=== PATIENT | male | born 1950 | race Caucasian/White ===

== ENCOUNTER 2016-10-17 20:02 | Inpatient (IN) | payer MEDICARE, MEDICAID ==
[~2016-10-17] VITALS: Ht 167.6 cm; Wt 66.7 kg
[~2016-10-17 20:02] MED LIST: ACET-784 PO; LOPE2 PO; METR250T PO; MULT-29 PO; PANT40TA PO; ZOLP5 PO
[2016-10-17 20:28] LABS: BASOPHILS % (AUTO) 0.9 % (0.0-2.0); EOSINOPHILS % (AUTO) 0.1 % (1.0-6.0); HEMATOCRIT 50.6 % (41-53); HEMOGLOBIN 16.8 g/dL (13.5-17.5); LYMPHOCYTES % (AUTO) 13.3 % (22.0-44.0); MEAN CORPUSCULAR HEMOGLOBIN 33.4 pg (26.0-34.0); MEAN CORPUSCULAR HGB CONC 33.1 G/dL (31.0-37.0); MEAN CORPUSCULAR VOLUME 101 fL (80-100); MONOCYTES # (AUTO) 0.4 K/uL (0.1-1.0); MONOCYTES % (AUTO) 5.1 % (2.0-9.0); NEUTROPHILS # (AUTO) 6.3 K/uL (1.8-7.7); NEUTROPHILS % (AUTO) 80.6 % (40.0-70.0); PLATELET COUNT (AUTO) 183 K/uL (150-450); RED BLOOD CELL COUNT(AUTO) 5.02 MIL/uL (4.50-5.90); RED CELL DISTRIBUTION WIDTH 15.3 % (11.5-14.5); WHITE BLOOD COUNT (AUTO) 7.8 K/uL (4.5-11.0)
[2016-10-17] MEDS ORDERED: POVIDONE-IODINE 10% 15 ML SOLUTION UD ONE (20:29)
[2016-10-17 20:41] LABS: ANION GAP 19 mmol/L (8-16); CALCIUM, TOTAL 8.1 mg/dL (8.8-10.5); CARBON DIOXIDE 22 mmol/L (22-29); CHLORIDE 98 mmol/L (98-107); CREATININE 0.81 mg/dL (0.60-1.30); GLOMERULAR FILTR. RATE CALC > 60 mL/min (>60); POTASSIUM 3.7 mmol/L (3.5-5.1); SODIUM SERUM 139 mmol/L (136-145); UREA NITROGEN, BLOOD 10 mg/dL (7-18)
[2016-10-17 20:44] LABS: RBC MORPHOLOGY COMMENT ABNORMAL RBC MORPH
[2016-10-17] MEDS ORDERED: LORazepam 2 MG TABLET PO ONE (20:45)
[2016-10-17 20:47] LABS: ALANINE AMINOTRANSFERASE 48 U/L (12-78); ALBUMIN 3.6 g/dL (3.4-5.0); ASPARTATE AMINOTRANSFERASE 68 U/L (15-37); BILIRUBIN,TOTAL 1.6 mg/dL (0.1-1.0); TOTAL PROTEIN, SERUM 7.3 g/dL (6.4-8.2)
[2016-10-17] MEDS ORDERED: HALOPERIDOL 5 MG TABLET PO PRN (22:30)
[2016-10-17] MEDS ORDERED: LORazepam 2 MG TABLET PO PRN (22:30)
[2016-10-17 23:00] VITALS: BP 130/70
[2016-10-18] VITALS (9 sets, daily range): BP systolic 100–151; BP diastolic 57–88
[2016-10-18] MEDS ORDERED: ChlordiazePOXIDE HCL 25 MG CAPSULE PO PRN (10:00)
[2016-10-18] MEDS: MIRTAZAPINE 15 MG TABLET PO SCH (20:10)
[2016-10-18] MEDS ORDERED: ACETAMINOPHEN 325 MG TABLET PO PRN (21:15)
[2016-10-18] MEDS ORDERED: IBUPROFEN 400 MG TABLET PO PRN (21:15)
[2016-10-19 02:03] VITALS: BP 110/60
[2016-10-19 06:22] VITALS: BP 116/80
[2016-10-19] MEDS ORDERED: ChlordiazePOXIDE HCL 25 MG CAPSULE PO PRN (07:00)
[2016-10-19 07:17] LABS: HEMOGLOBIN A1C 5.1 % (4.5-6.2)
[2016-10-19 07:29] LABS: CHOL/HDL RATIO 1.3 (4.2-7.3)
[2016-10-19 08:30] VITALS: BP 124/75
[2016-10-19] MEDS: ChlordiazePOXIDE HCL 25 MG CAPSULE PO SCH ×4 (09:36→20:27)
[2016-10-19] MEDS: PANTOPRAZOLE SODIUM 40 MG DR TABLET PO SCH ×2 (09:36→16:02)
[2016-10-19] MEDS: ASPIRIN 81 MG CHEWABLE TABLET PO SCH (09:37)
[2016-10-19 10:00] VITALS: BP 136/77
[2016-10-19 16:48] VITALS: BP 117/76
[2016-10-19 20:26] VITALS: BP 95/57
[2016-10-19] MEDS: MIRTAZAPINE 15 MG TABLET PO SCH (20:27)
[2016-10-20 02:30] VITALS: BP 131/91
[2016-10-20 08:00] VITALS: BP 127/70
[2016-10-20] MEDS: ChlordiazePOXIDE HCL 25 MG CAPSULE PO SCH ×4 (08:41→20:53)
[2016-10-20] MEDS: ASPIRIN 81 MG CHEWABLE TABLET PO SCH (08:41)
[2016-10-20] MEDS: PANTOPRAZOLE SODIUM 40 MG DR TABLET PO SCH ×2 (08:41→17:20)
[2016-10-20 18:07] VITALS: BP 110/66
[2016-10-20] MEDS: MIRTAZAPINE 15 MG TABLET PO SCH (20:52)
[2016-10-21 06:20] VITALS: BP 122/58
[2016-10-21] MEDS ORDERED: ChlordiazePOXIDE HCL 10 MG CAPSULE PO PRN (07:00)
[2016-10-21 08:15] VITALS: BP 107/65
[2016-10-21] MEDS: PANTOPRAZOLE SODIUM 40 MG DR TABLET PO SCH ×2 (08:37→16:17)
[2016-10-21] MEDS: ASPIRIN 81 MG CHEWABLE TABLET PO SCH (08:38)
[2016-10-21] MEDS: ChlordiazePOXIDE HCL 10 MG CAPSULE PO SCH ×4 (08:38→20:46)
[2016-10-21 16:30] VITALS: BP 108/67
[2016-10-21] MEDS: MIRTAZAPINE 15 MG TABLET PO SCH (20:45)
[2016-10-22] MEDS: CEPHALEXIN MONOHYDRATE 500 MG CAPSULE PO SCH ×4 (00:28→17:06)
[2016-10-22 01:27] VITALS: BP 122/75
[2016-10-22] MEDS ORDERED: ChlordiazePOXIDE HCL 10 MG CAPSULE PO PRN (07:00)
[2016-10-22 08:00] VITALS: BP 99/60
[2016-10-22] MEDS: PANTOPRAZOLE SODIUM 40 MG DR TABLET PO SCH ×2 (08:17→17:06)
[2016-10-22] MEDS: ASPIRIN 81 MG CHEWABLE TABLET PO SCH (08:17)
[2016-10-22] MEDS: SULFAMETHOX/TRIMETH DS 800-160 MG/TABLET PO SCH ×2 (08:17→17:06)
[2016-10-22] MEDS: CHLORHEXIDINE GLUCONATE 4% 118 ML TOPICAL LIQUID TP SCH (17:05)
[2016-10-22] MEDS: MUPIROCIN CALCIUM 2% 15 GM CREAM TP SCH (17:05)
[2016-10-22 19:33] VITALS: BP 101/57
[2016-10-22] MEDS: MIRTAZAPINE 15 MG TABLET PO SCH (21:23)
[2016-10-23] MEDS: CEPHALEXIN MONOHYDRATE 500 MG CAPSULE PO SCH ×4 (01:12→17:35)
[2016-10-23 03:14] VITALS: BP 108/61
[2016-10-23 08:18] VITALS: BP 111/63
[2016-10-23] MEDS: ASPIRIN 81 MG CHEWABLE TABLET PO SCH (08:52)
[2016-10-23] MEDS: SULFAMETHOX/TRIMETH DS 800-160 MG/TABLET PO SCH ×2 (08:52→17:35)
[2016-10-23] MEDS: PANTOPRAZOLE SODIUM 40 MG DR TABLET PO SCH ×2 (08:52→17:35)
[2016-10-23] MEDS: CHLORHEXIDINE GLUCONATE 4% 118 ML TOPICAL LIQUID TP SCH (08:54)
[2016-10-23] MEDS: MUPIROCIN CALCIUM 2% 15 GM CREAM TP SCH (08:54)
[2016-10-23 18:43] VITALS: BP 109/60
[2016-10-23] MEDS: MIRTAZAPINE 15 MG TABLET PO SCH (21:00)
[2016-10-24] MEDS: CEPHALEXIN MONOHYDRATE 500 MG CAPSULE PO SCH ×4 (00:59→17:01)
[2016-10-24 06:19] VITALS: BP 124/79
[2016-10-24 08:17] VITALS: BP 122/74
[2016-10-24] MEDS: PANTOPRAZOLE SODIUM 40 MG DR TABLET PO SCH ×2 (08:50→16:42)
[2016-10-24] MEDS: ASPIRIN 81 MG CHEWABLE TABLET PO SCH (08:50)
[2016-10-24] MEDS: CHLORHEXIDINE GLUCONATE 4% 118 ML TOPICAL LIQUID TP SCH (08:50)
[2016-10-24] MEDS: SULFAMETHOX/TRIMETH DS 800-160 MG/TABLET PO SCH ×2 (08:51→16:42)
[2016-10-24] MEDS: MUPIROCIN CALCIUM 2% 15 GM CREAM TP SCH (08:51)
[2016-10-24] MEDS: MIRTAZAPINE 15 MG TABLET PO SCH (20:24)
[2016-10-24 21:57] VITALS: BP 110/59
[2016-10-25] MEDS: CEPHALEXIN MONOHYDRATE 500 MG CAPSULE PO SCH ×4 (00:23→17:05)
[2016-10-25 08:21] VITALS: BP 103/65
[2016-10-25] MEDS: ASPIRIN 81 MG CHEWABLE TABLET PO SCH (08:48)
[2016-10-25] MEDS: SULFAMETHOX/TRIMETH DS 800-160 MG/TABLET PO SCH ×2 (08:48→16:37)
[2016-10-25] MEDS: PANTOPRAZOLE SODIUM 40 MG DR TABLET PO SCH ×2 (08:48→16:36)
[2016-10-25] MEDS: MUPIROCIN CALCIUM 2% 15 GM CREAM TP SCH (08:49)
[2016-10-25] MEDS: CHLORHEXIDINE GLUCONATE 4% 118 ML TOPICAL LIQUID TP SCH (08:49)
[2016-10-25 16:34] VITALS: BP 100/54
[2016-10-25] MEDS: MIRTAZAPINE 15 MG TABLET PO SCH (20:48)
[2016-10-26] MEDS: CEPHALEXIN MONOHYDRATE 500 MG CAPSULE PO SCH ×4 (00:29→16:32)
[2016-10-26 00:43] VITALS: BP 131/98
[2016-10-26 08:05] VITALS: BP 100/57
[2016-10-26] MEDS: PANTOPRAZOLE SODIUM 40 MG DR TABLET PO SCH ×2 (08:08→16:31)
[2016-10-26] MEDS: ASPIRIN 81 MG CHEWABLE TABLET PO SCH (08:08)
[2016-10-26] MEDS: MUPIROCIN CALCIUM 2% 15 GM CREAM TP SCH (08:09)
[2016-10-26] MEDS: SULFAMETHOX/TRIMETH DS 800-160 MG/TABLET PO SCH ×2 (08:09→16:31)
[2016-10-26] MEDS: CHLORHEXIDINE GLUCONATE 4% 118 ML TOPICAL LIQUID TP SCH (08:09)
[2016-10-26 16:12] VITALS: BP 106/69
[2016-10-26] MEDS: MIRTAZAPINE 15 MG TABLET PO SCH (21:19)
[2016-10-26 21:40] LABS: ADD UA MICROSCOPIC NO; APPEARANCE,URINE CLOUDY (CLEAR); GLUCOSE, URINE (UA) NEGATIVE (NEGATIVE); KETONES,URINE NEGATIVE (NEGATIVE); LEUKOCYTE ESTERASE ,URINE NEGATIVE (NEGATIVE); OCCULT BLOOD,URINE NEGATIVE (NEGATIVE); PH,URINE 5.5 (5.0-8.0); PROTEIN,URINE NEGATIVE (NEGATIVE)
[2016-10-27] MEDS: CEPHALEXIN MONOHYDRATE 500 MG CAPSULE PO SCH ×4 (00:29→19:09)
[2016-10-27 01:00] VITALS: BP 118/68
[2016-10-27 08:00] VITALS: BP 122/69
[2016-10-27] MEDS: PANTOPRAZOLE SODIUM 40 MG DR TABLET PO SCH ×2 (09:10→17:30)
[2016-10-27] MEDS: CHLORHEXIDINE GLUCONATE 4% 118 ML TOPICAL LIQUID TP SCH (09:11)
[2016-10-27] MEDS: ASPIRIN 81 MG CHEWABLE TABLET PO SCH (09:11)
[2016-10-27] MEDS: SULFAMETHOX/TRIMETH DS 800-160 MG/TABLET PO SCH ×2 (09:11→17:30)
[2016-10-27] MEDS: MUPIROCIN CALCIUM 2% 15 GM CREAM TP SCH (09:12)
[2016-10-27] MEDS ORDERED: MIRT15 PO (10:05)
[2016-10-27] MEDS ORDERED: ASPI81 PO (10:08)
[2016-10-27] MEDS ORDERED: CEPH500 PO (10:12)
[2016-10-27] MEDS ORDERED: MUPI15CR TP (10:15)
[2016-10-27] MEDS ORDERED: CHLO240L TP (10:15)
[2016-10-27] MEDS ORDERED: SULF1TAB42 PO (10:16)
[2016-10-27 17:20] VITALS: BP 98/56
[2016-10-27] MEDS: MIRTAZAPINE 15 MG TABLET PO SCH (20:36)
[2016-10-28] MEDS: CEPHALEXIN MONOHYDRATE 500 MG CAPSULE PO SCH ×5 (00:06→23:18)
[2016-10-28] MEDS: PANTOPRAZOLE SODIUM 40 MG DR TABLET PO SCH ×2 (08:03→16:43)
[2016-10-28] MEDS: SULFAMETHOX/TRIMETH DS 800-160 MG/TABLET PO SCH ×2 (08:03→16:43)
[2016-10-28] MEDS: ASPIRIN 81 MG CHEWABLE TABLET PO SCH (08:03)
[2016-10-28 08:20] VITALS: BP 105/63
[2016-10-28] MEDS: MUPIROCIN CALCIUM 2% 15 GM CREAM TP SCH (09:37)
[2016-10-28] MEDS: CHLORHEXIDINE GLUCONATE 4% 118 ML TOPICAL LIQUID TP SCH (09:37)
[2016-10-28 16:46] VITALS: BP 107/59
[2016-10-28] MEDS: MIRTAZAPINE 15 MG TABLET PO SCH (20:32)
[2016-10-29] MEDS: CEPHALEXIN MONOHYDRATE 500 MG CAPSULE PO SCH ×3 (06:26→19:34)
[2016-10-29] MEDS: SULFAMETHOX/TRIMETH DS 800-160 MG/TABLET PO SCH ×2 (08:13→16:23)
[2016-10-29] MEDS: PANTOPRAZOLE SODIUM 40 MG DR TABLET PO SCH ×2 (08:13→16:23)
[2016-10-29] MEDS: ASPIRIN 81 MG CHEWABLE TABLET PO SCH (08:13)
[2016-10-29 08:35] VITALS: BP 114/67
[2016-10-29] MEDS: CHLORHEXIDINE GLUCONATE 4% 118 ML TOPICAL LIQUID TP SCH (09:33)
[2016-10-29] MEDS: MUPIROCIN CALCIUM 2% 15 GM CREAM TP SCH (09:33)
[2016-10-29 16:30] VITALS: BP 122/78
[2016-10-29] MEDS: MIRTAZAPINE 15 MG TABLET PO SCH (20:47)
[2016-10-30] MEDS: CEPHALEXIN MONOHYDRATE 500 MG CAPSULE PO SCH ×4 (00:45→18:19)
[2016-10-30] MEDS: ASPIRIN 81 MG CHEWABLE TABLET PO SCH (08:26)
[2016-10-30] MEDS: SULFAMETHOX/TRIMETH DS 800-160 MG/TABLET PO SCH ×2 (08:26→16:06)
[2016-10-30] MEDS: PANTOPRAZOLE SODIUM 40 MG DR TABLET PO SCH ×2 (08:26→16:06)
[2016-10-30 08:59] VITALS: BP 110/63
[2016-10-30] MEDS: CHLORHEXIDINE GLUCONATE 4% 118 ML TOPICAL LIQUID TP SCH (09:02)
[2016-10-30] MEDS: MUPIROCIN CALCIUM 2% 15 GM CREAM TP SCH (09:02)
[2016-10-30 16:34] VITALS: BP 109/78
[2016-10-30] MEDS: MIRTAZAPINE 15 MG TABLET PO SCH (20:08)
[2016-10-30] MEDS: ZOLPIDEM TARTRATE 10 MG TABLET PO PRN (22:18)
[2016-10-31 01:00] VITALS: BP 107/69
[2016-10-31] MEDS: CEPHALEXIN MONOHYDRATE 500 MG CAPSULE PO SCH ×4 (01:01→17:37)
[2016-10-31 06:46] LABS: BASOPHILS % (AUTO) 1.4 % (0.0-2.0); EOSINOPHILS % (AUTO) 2.9 % (1.0-6.0); HEMATOCRIT 42.7 % (41-53); HEMOGLOBIN 13.7 g/dL (13.5-17.5); LYMPHOCYTES # (AUTO) 1.5 K/uL (1.0-4.8); MEAN CORPUSCULAR HEMOGLOBIN 32.6 pg (26.0-34.0); MEAN CORPUSCULAR HGB CONC 32.2 G/dL (31.0-37.0); MEAN CORPUSCULAR VOLUME 101 fL (80-100); MONOCYTES % (AUTO) 12.3 % (2.0-9.0); NEUTROPHILS # (AUTO) 5.1 K/uL (1.8-7.7); NEUTROPHILS % (AUTO) 64.4 % (40.0-70.0); PLATELET COUNT (AUTO) 392 K/uL (150-450); RED BLOOD CELL COUNT(AUTO) 4.21 MIL/uL (4.50-5.90); RED CELL DISTRIBUTION WIDTH 14.6 % (11.5-14.5); WHITE BLOOD COUNT (AUTO) 7.9 K/uL (4.5-11.0)
[2016-10-31 07:09] LABS: ALANINE AMINOTRANSFERASE 56 U/L (12-78); ALBUMIN 3.5 g/dL (3.4-5.0); ANION GAP 10 mmol/L (8-16); ASPARTATE AMINOTRANSFERASE 26 U/L (15-37); BILIRUBIN,TOTAL 0.2 mg/dL (0.1-1.0); CALCIUM, TOTAL 8.8 mg/dL (8.8-10.5); CARBON DIOXIDE 24 mmol/L (22-29); CHLORIDE 103 mmol/L (98-107); CREATININE 0.93 mg/dL (0.60-1.30); GLOMERULAR FILTR. RATE CALC > 60 mL/min (>60); POTASSIUM 5.5 mmol/L (3.5-5.1); SODIUM SERUM 137 mmol/L (136-145); TOTAL PROTEIN, SERUM 6.9 g/dL (6.4-8.2); UREA NITROGEN, BLOOD 23 mg/dL (7-18)
[2016-10-31] MEDS: PANTOPRAZOLE SODIUM 40 MG DR TABLET PO SCH ×2 (09:10→16:21)
[2016-10-31] MEDS: ASPIRIN 81 MG CHEWABLE TABLET PO SCH (09:10)
[2016-10-31] MEDS: SULFAMETHOX/TRIMETH DS 800-160 MG/TABLET PO SCH ×2 (09:10→16:21)
[2016-10-31] MEDS: MUPIROCIN CALCIUM 2% 15 GM CREAM TP SCH (09:11)
[2016-10-31] MEDS: CHLORHEXIDINE GLUCONATE 4% 118 ML TOPICAL LIQUID TP SCH (09:11)
[2016-10-31 09:33] VITALS: BP 116/60
[2016-10-31 10:59] LABS: RBC MORPHOLOGY COMMENT ABNORMAL RBC MORPH
[2016-10-31] MEDS ORDERED: SODIUM POLYSTYRENE SULFONATE 15 GM/60 ML SUSPENSION BOTTLE PO ONE (11:30)
[2016-10-31 16:39] VITALS: BP 106/65
[2016-10-31] MEDS: MIRTAZAPINE 15 MG TABLET PO SCH (20:32)
[2016-11-01] MEDS: ZOLPIDEM TARTRATE 10 MG TABLET PO PRN (00:33)
[2016-11-01 00:51] VITALS: BP 134/86
[2016-11-01 08:01] VITALS: BP 113/64
[2016-11-01] MEDS: ASPIRIN 81 MG CHEWABLE TABLET PO SCH (09:02)
[2016-11-01] MEDS: CHOLECALCIFEROL (VIT D3) 1,000 UNITS TABLET PO SCH (09:02)
[2016-11-01] MEDS: PANTOPRAZOLE SODIUM 40 MG DR TABLET PO SCH ×2 (09:02→16:41)
[2016-11-01] MEDS: CHLORHEXIDINE GLUCONATE 4% 118 ML TOPICAL LIQUID TP SCH (14:16)
[2016-11-01 17:35] VITALS: BP 125/83
[2016-11-01] MEDS: MIRTAZAPINE 30 MG TABLET PO SCH (20:17)
[2016-11-02 01:40] VITALS: BP 118/72
[2016-11-02 03:26] LABS: HEPATITIS Bs ANTIGEN SCREEN P Negative (Negative); HEPATITIS C AB SCREEN 0.1 s/co ratio (0.0-0.9)
[2016-11-02 07:41] LABS: ANION GAP 9 mmol/L (8-16); CALCIUM, TOTAL 9.1 mg/dL (8.8-10.5); CARBON DIOXIDE 26 mmol/L (22-29); CHLORIDE 104 mmol/L (98-107); CREATININE 0.79 mg/dL (0.60-1.30); GLOMERULAR FILTR. RATE CALC > 60 mL/min (>60); SODIUM SERUM 139 mmol/L (136-145); UREA NITROGEN, BLOOD 21 mg/dL (7-18)
[2016-11-02] MEDS: PANTOPRAZOLE SODIUM 40 MG DR TABLET PO SCH ×2 (07:50→16:49)
[2016-11-02] MEDS: CHOLECALCIFEROL (VIT D3) 1,000 UNITS TABLET PO SCH (07:50)
[2016-11-02] MEDS: ASPIRIN 81 MG CHEWABLE TABLET PO SCH (07:50)
[2016-11-02] MEDS: CHLORHEXIDINE GLUCONATE 4% 118 ML TOPICAL LIQUID TP SCH (08:26)
[2016-11-02 08:30] VITALS: BP 132/72
[2016-11-02 16:29] VITALS: BP 112/69
[2016-11-02] MEDS: MIRTAZAPINE 30 MG TABLET PO SCH (20:27)
[2016-11-02] MEDS: ZOLPIDEM TARTRATE 10 MG TABLET PO PRN (23:17)
[2016-11-03] MEDS: CHLORHEXIDINE GLUCONATE 4% 118 ML TOPICAL LIQUID TP SCH (08:17)
[2016-11-03] MEDS: PANTOPRAZOLE SODIUM 40 MG DR TABLET PO SCH ×2 (08:17→16:00)
[2016-11-03] MEDS: ASPIRIN 81 MG CHEWABLE TABLET PO SCH (08:17)
[2016-11-03] MEDS: CHOLECALCIFEROL (VIT D3) 1,000 UNITS TABLET PO SCH (08:17)
[2016-11-03 10:45] VITALS: BP 157/95
[2016-11-03 17:00] VITALS: BP 140/77
[2016-11-03] MEDS: MIRTAZAPINE 30 MG TABLET PO SCH (20:47)
[2016-11-04] MEDS: ASPIRIN 81 MG CHEWABLE TABLET PO SCH (07:56)
[2016-11-04] MEDS: PANTOPRAZOLE SODIUM 40 MG DR TABLET PO SCH (07:56)
[2016-11-04] MEDS: CHOLECALCIFEROL (VIT D3) 1,000 UNITS TABLET PO SCH (07:56)
[2016-11-04] MEDS: CHLORHEXIDINE GLUCONATE 4% 118 ML TOPICAL LIQUID TP SCH (08:00)
[2016-11-04] MEDS ORDERED: VITAD1000 PO (08:08)
[2016-11-04 10:30] VITALS: BP 115/68
== END 2016-11-04 15:10 | disposition home or self-care (01) | DRG 885 ==
LOC: EMS 20:04 → AHU 10-18 00:05 → 3EX 10-18 16:31
PROVIDERS: ADMIT Psychiatry & Neurology Child & Adolescent Psychiatry; ATTEND Psychiatry & Neurology Child & Adolescent Psychiatry
DX: F33.2 Major depressive disorder, recurrent severe without psychotic features (principal); F10.239 Alcohol dependence with withdrawal, unspecified; R45.851 Suicidal ideations; L03.211 Cellulitis of face; K21.9 Gastro-esophageal reflux disease without esophagitis; I25.10 Atherosclerotic heart disease of native coronary artery without angina pectoris; F19.10 Other psychoactive substance abuse, uncomplicated; E80.6 Other disorders of bilirubin metabolism; K74.60 Unspecified cirrhosis of liver; G62.9 Polyneuropathy, unspecified; R26.9 Unspecified abnormalities of gait and mobility; B95.7 Other staphylococcus as the cause of diseases classified elsewhere; F17.210 Nicotine dependence, cigarettes, uncomplicated; D64.9 Anemia, unspecified; E55.9 Vitamin D deficiency, unspecified; E87.5 Hyperkalemia; F41.9 Anxiety disorder, unspecified; R45.87 Impulsiveness; I11.9 Hypertensive heart disease without heart failure; I50.9 Heart failure, unspecified; Z86.14 Personal history of Methicillin resistant Staphylococcus aureus infection; Z79.899 Other long term (current) drug therapy; Z95.5 Presence of coronary angioplasty implant and graft; Z79.82 Long term (current) use of aspirin; Z99.3 Dependence on wheelchair; Z79.2 Long term (current) use of antibiotics
CPT/HCPCS: 74176; 80074; 82306; 82607; 82746; 83036; 84443; 87070; 87205; 97110; 97116; 97161; 99285; G0480

== ENCOUNTER 2017-11-22 14:23 | Emergency (ER) | payer MEDICARE, MEDICAID ==
[~2017-11-22] VITALS: Ht 172.7 cm; Wt 80.0 kg
[~2017-11-22 14:23] MED LIST changes: -ACET-784 PO; +ASPI81 PO; +CHLO240L TP; -LOPE2 PO; -METR250T PO; +MIRT15 PO; -MULT-29 PO; +VITAD1000 PO; -ZOLP5 PO
[2017-11-22] MEDS ORDERED: LORA-192 PO (16:21)
[2017-11-22] MEDS ORDERED: THIA100T13 PO (16:22)
[2017-11-22 16:36] LABS: EOSINOPHILS % (AUTO) 5.6 % (1.0-6.0); HEMATOCRIT 35.2 % (41-53); HEMOGLOBIN 11.6 g/dL (13.5-17.5); LYMPHOCYTES # (AUTO) 2.1 K/uL (1.0-4.8); LYMPHOCYTES % (AUTO) 33.6 % (22.0-44.0); MEAN CORPUSCULAR HEMOGLOBIN 27.5 pg (26.0-34.0); MEAN CORPUSCULAR VOLUME 83 fL (80-100); MONOCYTES # (AUTO) 0.5 K/uL (0.1-1.0); MONOCYTES % (AUTO) 8.5 % (2.0-9.0); NEUTROPHILS # (AUTO) 3.3 K/uL (1.8-7.7); NEUTROPHILS % (AUTO) 51.3 % (40.0-70.0); PLATELET COUNT (AUTO) 397 K/uL (150-450); RED BLOOD CELL COUNT(AUTO) 4.23 MIL/uL (4.50-5.90); RED CELL DISTRIBUTION WIDTH 16.1 % (11.5-14.5)
[2017-11-22 16:52] LABS: ANION GAP 9 mmol/L (8-16); CALCIUM, TOTAL 8.4 mg/dL (8.8-10.5); CARBON DIOXIDE 28 mmol/L (22-29); CHLORIDE 105 mmol/L (98-107); CREATININE 0.98 mg/dL (0.60-1.30); GLOMERULAR FILTR. RATE CALC > 60 mL/min (>60); GLUCOSE,RANDOM 94 mg/dL (70-110); POTASSIUM 3.9 mmol/L (3.5-5.1); SODIUM SERUM 142 mmol/L (136-145); UREA NITROGEN, BLOOD 9 mg/dL (7-18)
[2017-11-22 17:01] LABS: ALANINE AMINOTRANSFERASE 21 U/L (12-78); ALBUMIN 3.5 g/dL (3.4-5.0); ALKALINE PHOSPHATASE 64 U/L (46-116); ASPARTATE AMINOTRANSFERASE 20 U/L (15-37); BILIRUBIN,TOTAL 0.7 mg/dL (0.1-1.0); TOTAL PROTEIN, SERUM 7.6 g/dL (6.4-8.2)
[2017-11-22 19:17] LABS: AMPHET/METH SCREEN,URINE NEGATIVE (NEGATIVE); BARBITURATE SCREEN, URINE NEGATIVE (NEGATIVE); BENZODIAZEPINES SCREEN,URINE POSITIVE (NEGATIVE); CANNABINOID SCREEN,URINE POSITIVE (NEGATIVE); COCAINE SCREEN,URINE NEGATIVE (NEGATIVE); METHADONE SCREEN, URINE NEGATIVE (NEGATIVE); OPIATE SCREEN,URINE NEGATIVE (NEGATIVE); PHENCYCLIDINE SCREEN,URINE NEGATIVE (NEGATIVE)
[2017-11-22] MEDS ORDERED: ONDANSETRON HCL 4 MG TABLET PO ONE (20:00)
[2017-11-22 20:26] VITALS: BP 120/74
== END 2017-11-22 21:08 | disposition home or self-care (01) ==
LOC: EMS 14:27
DX: F32.9 Major depressive disorder, single episode, unspecified (principal); K21.9 Gastro-esophageal reflux disease without esophagitis; I10 Essential (primary) hypertension; F17.210 Nicotine dependence, cigarettes, uncomplicated; Z95.1 Presence of aortocoronary bypass graft; Z95.5 Presence of coronary angioplasty implant and graft; Z79.82 Long term (current) use of aspirin
CPT/HCPCS: 36415; 80053; 80307; 85025; 99284; G0480; Q0162

== ENCOUNTER 2021-04-13 13:14 | Emergency (ER) | payer MEDICAID, MEDICARE ==
[~2021-04-13] VITALS: Ht 170.2 cm; Wt 79.5 kg
[~2021-04-13 13:14] MED LIST changes: +ASPI-1450 PO; -ASPI81 PO; +CHOL100018 PO; +LORA-192 PO; +MIRT-89 PO; -MIRT15 PO; +THIA100T13 PO; -VITAD1000 PO
[2021-04-13 13:56] LABS: BASOPHILS % (AUTO) 0.5 % (0.0-2.0); EOSINOPHILS % (AUTO) 0.9 % (1.0-6.0); HEMATOCRIT 46.1 % (41-53); HEMOGLOBIN 14.7 g/dL (13.5-17.5); LYMPHOCYTES # (AUTO) 1.3 K/uL (1.0-4.8); MEAN CORPUSCULAR HEMOGLOBIN 25.7 pg (26.0-34.0); MEAN CORPUSCULAR HGB CONC 31.8 G/dL (31.0-37.0); MEAN CORPUSCULAR VOLUME 81 fL (80-100); MONOCYTES # (AUTO) 0.6 K/uL (0.1-1.0); MONOCYTES % (AUTO) 7.8 % (2.0-9.0); NEUTROPHILS # (AUTO) 5.9 K/uL (1.8-7.7); NEUTROPHILS % (AUTO) 74.8 % (40.0-70.0); PLATELET COUNT (AUTO) 268 K/uL (150-450); RED CELL DISTRIBUTION WIDTH 22.5 % (11.5-14.5)
[2021-04-13 14:05] LABS: ANION GAP 13 mmol/L (8-16); CALCIUM, TOTAL 8.2 mg/dL (8.8-10.5); CARBON DIOXIDE 23 mmol/L (22-29); CHLORIDE 102 mmol/L (98-107); CREATININE 0.88 mg/dL (0.60-1.30); GLOMERULAR FILTR. RATE CALC > 60 mL/min (>60); GLUCOSE,RANDOM 116 mg/dL (70-110); POTASSIUM 3.7 mmol/L (3.5-5.1); SODIUM SERUM 138 mmol/L (136-145); UREA NITROGEN, BLOOD 10 mg/dL (7-18)
[2021-04-13 14:06] LABS: COVID AG,FIA SOURCE NASOPHARYNGEAL
[2021-04-13 14:13] LABS: ALANINE AMINOTRANSFERASE 15 U/L (12-78); ALBUMIN 3.6 g/dL (3.4-5.0); ALKALINE PHOSPHATASE 91 U/L (46-116); ASPARTATE AMINOTRANSFERASE 16 U/L (15-37); TOTAL PROTEIN, SERUM 7.4 g/dL (6.4-8.2)
[2021-04-13 16:30] LABS: APPEARANCE,URINE CLEAR (CLEAR); GLUCOSE, URINE (UA) NEGATIVE (NEGATIVE); KETONES,URINE TRACE mg/dL (NEGATIVE); LEUKOCYTE ESTERASE ,URINE SMALL (NEGATIVE); NITRATE,URINE NEGATIVE (NEGATIVE); OCCULT BLOOD,URINE NEGATIVE (NEGATIVE); PROTEIN,URINE TRACE (NEGATIVE)
[2021-04-13 16:31] LABS: AMPHET/METH SCREEN,URINE NEGATIVE (NEGATIVE); BARBITURATE SCREEN, URINE NEGATIVE (NEGATIVE); BENZODIAZEPINES SCREEN,URINE NEGATIVE (NEGATIVE); CANNABINOID SCREEN,URINE POSITIVE (NEGATIVE); COCAINE SCREEN,URINE NEGATIVE (NEGATIVE); METHADONE SCREEN, URINE NEGATIVE (NEGATIVE); OPIATE SCREEN,URINE NEGATIVE (NEGATIVE)
[2021-04-13 16:33] LABS: BILIRUBIN,URINE PRELIM. POSITIVE (NEGATIVE)
[2021-04-13 16:34] LABS: PHENCYCLIDINE SCREEN,URINE NEGATIVE (NEGATIVE)
[2021-04-13 16:38] LABS: SQUAMOUS EPITHELIAL CELL,UR Few /LPF (None Seen)
[2021-04-13 16:39] LABS: BACTERIA,URINE Rare /HPF (None Seen); RBC,URINE None Seen /HPF (0-2)
[2021-04-13] MEDS ORDERED: MAG HYDROX/AL HYDROX/SIMETH ES 30 ML SUSPENSION UDCUP PO ONE (17:45)
[2021-04-13 18:30] VITALS: BP 146/89
== END 2021-04-13 20:20 | disposition home or self-care (01) ==
LOC: EMS 13:14
DX: F32.9 Major depressive disorder, single episode, unspecified (principal); I10 Essential (primary) hypertension; F17.210 Nicotine dependence, cigarettes, uncomplicated; Z20.822 Contact with and (suspected) exposure to COVID-19
CPT/HCPCS: 36415; 80053; 80307; 81001; 85025; 87086; 87426; 99284; G0480; 87077; 87186

== ENCOUNTER 2022-03-15 20:29 | Inpatient (IN) | payer MEDICARE, OTHER ==
[~2022-03-15] VITALS: Ht 167.6 cm; Wt 81.7 kg
[2022-03-15] MEDS ORDERED: ONDANSETRON HCL 4 MG/2 ML VIAL IVP ONE (22:45)
[2022-03-15] MEDS ORDERED: KETOROLAC TROMETHAMINE 30 MG/ML VIAL IVP ONE (22:45)
[2022-03-15] MEDS ORDERED: FAMOTIDINE 10 MG/ML 2 ML VIAL IVP ONE (22:45)
[2022-03-15] MEDS ORDERED: LORazepam 2 MG/ML VIAL IVP ONE (22:45)
[2022-03-15] MEDS ORDERED: SODIUM CHLORIDE 0.9% 1,000 ML IV ONE (22:45)
[2022-03-15 22:53] LABS: BASOPHILS % (AUTO) 1.3 % (0.0-2.0); EOSINOPHILS % (AUTO) 1.2 % (1.0-6.0); HEMATOCRIT 37.5 % (41-53); HEMOGLOBIN 11.7 g/dL (13.5-17.5); LYMPHOCYTES # (AUTO) 1.7 K/uL (1.0-4.8); LYMPHOCYTES % (AUTO) 15.4 % (22.0-44.0); MEAN CORPUSCULAR HEMOGLOBIN 23.1 pg (26.0-34.0); MEAN CORPUSCULAR HGB CONC 31.2 G/dL (31.0-37.0); MEAN CORPUSCULAR VOLUME 74 fL (80-100); MONOCYTES # (AUTO) 0.8 K/uL (0.1-1.0); MONOCYTES % (AUTO) 7.2 % (2.0-9.0); NEUTROPHILS # (AUTO) 8.3 K/uL (1.8-7.7); NEUTROPHILS % (AUTO) 74.9 % (40.0-70.0); PLATELET COUNT (AUTO) 252 K/uL (150-450); RED BLOOD CELL COUNT(AUTO) 5.05 MIL/uL (4.50-5.90); RED CELL DISTRIBUTION WIDTH 21.4 % (11.5-14.5)
[2022-03-15] MEDS ORDERED: SODIUM CHLORIDE 0.9% 100 ML ONE (23:06)
[2022-03-15] MEDS ORDERED: IOHEXOL 350 MG/ML 100 ML VIAL ONE (23:07)
[2022-03-15 23:16] LABS: ANION GAP 6 mmol/L (8-16); CALCIUM, TOTAL 8.8 mg/dL (8.8-10.5); CARBON DIOXIDE 26 mmol/L (22-29); CHLORIDE 101 mmol/L (98-107); CREATININE 1.05 mg/dL (0.60-1.30); GLUCOSE,RANDOM 106 mg/dL (70-110); POTASSIUM 3.9 mmol/L (3.5-5.1); SODIUM SERUM 133 mmol/L (136-145); UREA NITROGEN, BLOOD 13 mg/dL (7-18)
[2022-03-15 23:17] LABS: GLOMERULAR FILTR. RATE CALC > 60 mL/min (>60)
[2022-03-15 23:21] LABS: ALANINE AMINOTRANSFERASE 16 U/L (12-78); ALBUMIN 3.7 g/dL (3.4-5.0); ALKALINE PHOSPHATASE 91 U/L (46-116); ASPARTATE AMINOTRANSFERASE 21 U/L (15-37); BILIRUBIN,TOTAL 0.7 mg/dL (0.1-1.0); LIPASE 76 U/L (73-393); PHOSPHORUS 2.5 mg/dL (2.5-4.9); TOTAL PROTEIN, SERUM 7.6 g/dL (6.4-8.2)
[2022-03-15] MEDS ORDERED: ONDANSETRON HCL 4 MG/2 ML VIAL IVP PRN (23:45)
[2022-03-15] MEDS ORDERED: LORazepam 2 MG TABLET PO PRN (23:45)
[2022-03-15] MEDS ORDERED: ACETAMINOPHEN 325 MG TABLET PO PRN (23:45)
[2022-03-15 23:48] LABS: B-TYPE NATRIURETIC PEPTIDE 36 pg/mL (0-100)
[2022-03-16] MEDS: HEPARIN SODIUM,PORCINE 5,000 UNITS/ML VIAL SQ SCH ×4 (00:37→23:33)
[2022-03-16 05:47] LABS: APPEARANCE,URINE CLEAR (CLEAR); BILIRUBIN,URINE NEGATIVE (NEGATIVE); GLUCOSE, URINE (UA) NEGATIVE (NEGATIVE); KETONES,URINE NEGATIVE (NEGATIVE); LEUKOCYTE ESTERASE ,URINE TRACE (NEGATIVE); NITRATE,URINE NEGATIVE (NEGATIVE); OCCULT BLOOD,URINE NEGATIVE (NEGATIVE); PROTEIN,URINE TRACE mg/dL (NEGATIVE); SPECIFIC GRAVITIY, URINE 1.019 (1.003-1.030)
[2022-03-16 05:51] LABS: COVID AG,FIA SOURCE NASOPHARYNGEAL
[2022-03-16 05:57] LABS: AMPHET/METH SCREEN,URINE NEGATIVE (NEGATIVE); BARBITURATE SCREEN, URINE NEGATIVE (NEGATIVE); BENZODIAZEPINES SCREEN,URINE NEGATIVE (NEGATIVE); CANNABINOID SCREEN,URINE NEGATIVE (NEGATIVE); COCAINE SCREEN,URINE NEGATIVE (NEGATIVE); METHADONE SCREEN, URINE NEGATIVE (NEGATIVE); OPIATE SCREEN,URINE NEGATIVE (NEGATIVE)
[2022-03-16 05:59] LABS: BACTERIA,URINE Moderate /HPF (None Seen); RBC,URINE 0-2 /HPF (0-2); SQUAMOUS EPITHELIAL CELL,UR Few /LPF (None Seen)
[2022-03-16 06:02] LABS: PHENCYCLIDINE SCREEN,URINE NEGATIVE (NEGATIVE)
[2022-03-16] MEDS ORDERED: LORazepam 2 MG TABLET PO PRN (07:00)
[2022-03-16] MEDS ORDERED: MAGNESIUM OXIDE 400 MG TABLET PO PRN (08:00)
[2022-03-16] MEDS ORDERED: MAGNESIUM SULFATE 4 GM/WATER 100 ML IV PRN (08:00)
[2022-03-16] MEDS ORDERED: MAGNESIUM SULFATE 2 GM/WATER 50 ML IV PRN (08:00)
[2022-03-16 08:44] VITALS: BP 139/80
[2022-03-16] MEDS: LORazepam 2 MG TABLET PO SCH ×4 (09:38→23:33)
[2022-03-16] MEDS: MAGNESIUM SULFATE 2 GM, MVI, ADULT NO.1 WITH VIT K 10 ML, THIAMINE 100 MG, FOLIC ACID 1... IV SCH ×5 (09:38)
[2022-03-16 10:58] VITALS: BP 132/72
[2022-03-16 14:47] VITALS: BP 138/68
[2022-03-16 20:09] VITALS: BP 136/72
[2022-03-17] VITALS (7 sets, daily range): BP systolic 126–143; BP diastolic 68–85
[2022-03-17] MEDS: MAGNESIUM SULFATE 2 GM, MVI, ADULT NO.1 WITH VIT K 10 ML, THIAMINE 100 MG, FOLIC ACID 1... IV SCH ×5 (05:10)
[2022-03-17] MEDS: HEPARIN SODIUM,PORCINE 5,000 UNITS/ML VIAL SQ SCH ×3 (08:49→23:13)
[2022-03-17] MEDS: LORazepam 2 MG TABLET PO SCH ×4 (08:50→21:20)
[2022-03-18] MEDS: MAGNESIUM SULFATE 2 GM, MVI, ADULT NO.1 WITH VIT K 10 ML, THIAMINE 100 MG, FOLIC ACID 1... IV SCH ×10 (00:38→20:57)
[2022-03-18 03:08] VITALS: BP 141/79
[2022-03-18] MEDS ORDERED: LORazepam 1 MG TABLET PO PRN (07:00)
[2022-03-18 08:00] VITALS: BP 119/66
[2022-03-18] MEDS: HEPARIN SODIUM,PORCINE 5,000 UNITS/ML VIAL SQ SCH ×2 (08:57→16:00)
[2022-03-18] MEDS: LORazepam 1 MG TABLET PO SCH ×4 (08:57→21:54)
[2022-03-18 15:03] VITALS: BP 149/87
[2022-03-18 19:22] VITALS: BP 137/101
[2022-03-19] MEDS: HEPARIN SODIUM,PORCINE 5,000 UNITS/ML VIAL SQ SCH ×4 (00:51→23:41)
[2022-03-19 03:50] VITALS: BP 146/81
[2022-03-19] MEDS ORDERED: LORazepam 1 MG TABLET PO PRN (07:00)
[2022-03-19] MEDS ORDERED: METOPROLOL TARTRATE 25 MG TABLET PO ONE (11:15)
[2022-03-19 12:13] LABS: BASOPHILS % (AUTO) 0.7 % (0.0-2.0); EOSINOPHILS % (AUTO) 1.6 % (1.0-6.0); HEMATOCRIT 36.3 % (41-53); HEMOGLOBIN 11.2 g/dL (13.5-17.5); LYMPHOCYTES # (AUTO) 1.3 K/uL (1.0-4.8); LYMPHOCYTES % (AUTO) 13.1 % (22.0-44.0); MEAN CORPUSCULAR HEMOGLOBIN 23.7 pg (26.0-34.0); MEAN CORPUSCULAR HGB CONC 30.7 G/dL (31.0-37.0); MEAN CORPUSCULAR VOLUME 77 fL (80-100); MONOCYTES # (AUTO) 0.8 K/uL (0.1-1.0); NEUTROPHILS # (AUTO) 7.6 K/uL (1.8-7.7); NEUTROPHILS % (AUTO) 76.6 % (40.0-70.0); PLATELET COUNT (AUTO) 206 K/uL (150-450); RED BLOOD CELL COUNT(AUTO) 4.71 MIL/uL (4.50-5.90); RED CELL DISTRIBUTION WIDTH 22.5 % (11.5-14.5)
[2022-03-19 12:29] LABS: ANION GAP 8 mmol/L (8-16); CALCIUM, TOTAL 9.1 mg/dL (8.8-10.5); CARBON DIOXIDE 26 mmol/L (22-29); CHLORIDE 103 mmol/L (98-107); CREATININE 0.72 mg/dL (0.60-1.30); GLUCOSE,RANDOM 110 mg/dL (70-110); POTASSIUM 4.9 mmol/L (3.5-5.1); SODIUM SERUM 137 mmol/L (136-145); UREA NITROGEN, BLOOD 25 mg/dL (7-18)
[2022-03-19 12:34] LABS: GLOMERULAR FILTR. RATE CALC > 60 mL/min (>60)
[2022-03-19 12:36] LABS: ALANINE AMINOTRANSFERASE 19 U/L (12-78); ALBUMIN 3.6 g/dL (3.4-5.0); ALKALINE PHOSPHATASE 76 U/L (46-116); ASPARTATE AMINOTRANSFERASE 21 U/L (15-37); BILIRUBIN,TOTAL 0.4 mg/dL (0.1-1.0); TOTAL PROTEIN, SERUM 7.8 g/dL (6.4-8.2)
[2022-03-19 13:17] LABS: THYROID STIMULATING HORMONE 3.34 uIU/mL (0.36-3.74)
[2022-03-19] MEDS: PENICILLIN V POTASSIUM 500 MG TABLET PO SCH ×3 (13:18→21:27)
[2022-03-19] MEDS: MAGNESIUM SULFATE 2 GM, MVI, ADULT NO.1 WITH VIT K 10 ML, THIAMINE 100 MG, FOLIC ACID 1... IV SCH ×5 (17:16)
[2022-03-19 21:26] VITALS: BP 131/72
[2022-03-19] MEDS: METOPROLOL TARTRATE 25 MG TABLET PO SCH (21:28)
[2022-03-20 04:28] VITALS: BP 110/65
[2022-03-20] MEDS: PENICILLIN V POTASSIUM 500 MG TABLET PO SCH ×3 (08:06→15:27)
[2022-03-20] MEDS: METOPROLOL TARTRATE 25 MG TABLET PO SCH (08:06)
[2022-03-20] MEDS: HEPARIN SODIUM,PORCINE 5,000 UNITS/ML VIAL SQ SCH ×2 (08:06→15:27)
[2022-03-20 08:14] VITALS: BP 131/76
[2022-03-20] MEDS ORDERED: ONDANSETRON HCL 4 MG TABLET PO PRN (11:15)
[2022-03-20] MEDS: MAGNESIUM SULFATE 2 GM, MVI, ADULT NO.1 WITH VIT K 10 ML, THIAMINE 100 MG, FOLIC ACID 1... IV SCH ×5 (13:35)
[2022-03-20] MEDS ORDERED: METO25 PO (14:12)
[2022-03-20] MEDS ORDERED: ONDA-104 PO (14:12)
[2022-03-20] MEDS ORDERED: AMOX1TAB15 PO (14:12)
[2022-03-20 15:29] VITALS: BP 110/61
== END 2022-03-20 18:27 | disposition home or self-care (01) | DRG 640 ==
LOC: EMS 20:40 → 5N 03-16 07:19 → 6S 03-17 21:10 → 6N 03-18 23:19
PROVIDERS: ADMIT Internal Medicine; ATTEND Internal Medicine
DX: E87.1 Hypo-osmolality and hyponatremia (principal); G92.9 Unspecified toxic encephalopathy; N39.0 Urinary tract infection, site not specified; F10.139 Alcohol abuse with withdrawal, unspecified; I12.9 Hypertensive chronic kidney disease with stage 1 through stage 4 chronic kidney disease, or unspecified chronic kidney disease; E83.42 Hypomagnesemia; B95.2 Enterococcus as the cause of diseases classified elsewhere; D64.9 Anemia, unspecified; F41.9 Anxiety disorder, unspecified; F32.A Depression, unspecified; K21.9 Gastro-esophageal reflux disease without esophagitis; I25.10 Atherosclerotic heart disease of native coronary artery without angina pectoris; R00.0 Tachycardia, unspecified; K70.9 Alcoholic liver disease, unspecified; N18.9 Chronic kidney disease, unspecified; Z20.822 Contact with and (suspected) exposure to COVID-19; Z87.891 Personal history of nicotine dependence; Z95.1 Presence of aortocoronary bypass graft; Z95.5 Presence of coronary angioplasty implant and graft; Z79.899 Other long term (current) drug therapy; Z79.82 Long term (current) use of aspirin
CPT/HCPCS: 70450; 74177; 80053; 81001; 82040; 83690; 83735; 83880; 84100; 84443; 84484; 85025; 87086; 87186; 93005; 99291; G0480; J1644; J1885; J2060; J2405; J3411; J3475; J3490; J7030; J7050; Q0162; Q9967

== ENCOUNTER 2022-04-10 16:52 | Inpatient (IN) | payer MEDICARE, OTHER ==
[~2022-04-10] VITALS: Ht 167.6 cm; Wt 66.8 kg
[~2022-04-10 16:52] MED LIST changes: +AMOX1TAB15 PO; +METO25 PO; +ONDA-104 PO
[2022-04-10 17:43] LABS: BASOPHILS % (AUTO) 2.2 % (0.0-2.0); EOSINOPHILS % (AUTO) 1.4 % (1.0-6.0); HEMATOCRIT 39.9 % (41-53); HEMOGLOBIN 12.1 g/dL (13.5-17.5); LYMPHOCYTES # (AUTO) 1.6 K/uL (1.0-4.8); LYMPHOCYTES % (AUTO) 21.8 % (22.0-44.0); MEAN CORPUSCULAR HEMOGLOBIN 23.5 pg (26.0-34.0); MEAN CORPUSCULAR HGB CONC 30.3 G/dL (31.0-37.0); MEAN CORPUSCULAR VOLUME 78 fL (80-100); MONOCYTES # (AUTO) 0.5 K/uL (0.1-1.0); MONOCYTES % (AUTO) 6.6 % (2.0-9.0); PLATELET COUNT (AUTO) 261 K/uL (150-450); RED BLOOD CELL COUNT(AUTO) 5.14 MIL/uL (4.50-5.90); RED CELL DISTRIBUTION WIDTH 23.6 % (11.5-14.5)
[2022-04-10 17:47] LABS: ANION GAP 9 mmol/L (8-16); CALCIUM, TOTAL 8.6 mg/dL (8.8-10.5); CARBON DIOXIDE 26 mmol/L (22-29); CHLORIDE 103 mmol/L (98-107); CREATININE 1.06 mg/dL (0.60-1.30); GLUCOSE,RANDOM 86 mg/dL (70-110); SODIUM SERUM 138 mmol/L (136-145); UREA NITROGEN, BLOOD 12 mg/dL (7-18)
[2022-04-10 17:48] LABS: GLOMERULAR FILTR. RATE CALC > 60 mL/min (>60)
[2022-04-10 17:53] LABS: ALANINE AMINOTRANSFERASE 7 U/L (12-78); ALBUMIN 3.9 g/dL (3.4-5.0); ALKALINE PHOSPHATASE 90 U/L (46-116); ASPARTATE AMINOTRANSFERASE 24 U/L (15-37); BILIRUBIN,TOTAL 1.3 mg/dL (0.1-1.0); LIPASE 59 U/L (73-393); TOTAL PROTEIN, SERUM 7.7 g/dL (6.4-8.2)
[2022-04-10 18:01] LABS: B-TYPE NATRIURETIC PEPTIDE 121 pg/mL (0-100)
[2022-04-10 19:21] LABS: GLUCOSE,POINT OF CARE 96 MG/DL (70-110)
[2022-04-10 19:32] LABS: APPEARANCE,URINE CLEAR (CLEAR); BILIRUBIN,URINE NEGATIVE (NEGATIVE); GLUCOSE, URINE (UA) NEGATIVE (NEGATIVE); KETONES,URINE TRACE mg/dL (NEGATIVE); LEUKOCYTE ESTERASE ,URINE TRACE (NEGATIVE); NITRATE,URINE NEGATIVE (NEGATIVE); OCCULT BLOOD,URINE NEGATIVE (NEGATIVE); PROTEIN,URINE NEGATIVE (NEGATIVE)
[2022-04-10 19:38] LABS: BACTERIA,URINE Rare /HPF (None Seen); RBC,URINE 0-2 /HPF (0-2); SQUAMOUS EPITHELIAL CELL,UR Rare /LPF (None Seen)
[2022-04-10] MEDS ORDERED: SODIUM CHLORIDE 0.9% 500 ML IV ONE ×2 (20:15→23:15)
[2022-04-10 20:36] LABS: AMPHET/METH SCREEN,URINE NEGATIVE (NEGATIVE); BARBITURATE SCREEN, URINE NEGATIVE (NEGATIVE); BENZODIAZEPINES SCREEN,URINE NEGATIVE (NEGATIVE); CANNABINOID SCREEN,URINE NEGATIVE (NEGATIVE); COCAINE SCREEN,URINE NEGATIVE (NEGATIVE); METHADONE SCREEN, URINE NEGATIVE (NEGATIVE); OPIATE SCREEN,URINE NEGATIVE (NEGATIVE)
[2022-04-10 20:38] LABS: PHENCYCLIDINE SCREEN,URINE NEGATIVE (NEGATIVE)
[2022-04-10 20:38] LABS: PROTHROMBIN TIME 10.3 SEC (9.4-11.6)
[2022-04-10 20:41] LABS: LACTIC ACID 4.7 mmol/L (0.4-2.0)
[2022-04-10 20:55] LABS: AMMONIA < 10 umol/L (11-32); CREATINE KINASE, TOTAL ONLY 82 U/L (39-308)
[2022-04-10 21:49] LABS: COVID AG,FIA SOURCE NASAL SWAB
[2022-04-10] MEDS ORDERED: ONDANSETRON HCL 4 MG/2 ML VIAL IVP ONE (23:45)
[2022-04-10] MEDS ORDERED: DIAZEPAM 5 MG/ML 2 ML SYRINGE IVP ONE (23:45)
[2022-04-10 23:52] LABS: LIPASE 70 U/L (73-393)
[2022-04-11] MEDS ORDERED: RINGERS SOLUTION,LACTATED 1,000 ML IV SCH (01:00)
[2022-04-11] MEDS ORDERED: CefTRIAXone 1 GM/DEXTROSE 50 ML IV SCH (01:00)
[2022-04-11] MEDS ORDERED: ONDANSETRON HCL 4 MG/2 ML VIAL IVP PRN (01:00)
[2022-04-11] MEDS: ACETAMINOPHEN 325 MG TABLET PO PRN (03:34)
[2022-04-11 04:39] VITALS: BP 132/80
[2022-04-11] MEDS ORDERED: LORazepam 2 MG TABLET PO PRN (04:45)
[2022-04-11] MEDS ORDERED: 1: MAGNESIUM SULFATE 2 GM, MVI, ADULT NO.1 WITH VIT K 10 ML, THIAMINE 100 MG, FOLIC ACID IV SCH ×5 (05:00)
[2022-04-11] MEDS ORDERED: SODIUM CHLORIDE 0.9% 100 ML ONE (05:13)
[2022-04-11] MEDS ORDERED: IOHEXOL 300 MG/ML 100 ML VIAL ONE (05:14)
[2022-04-11] MEDS ORDERED: BARIUM SULFATE 0.1% SUSPENSION 450 ML BOTTLE ONE ×2 (05:14→05:15)
[2022-04-11] MEDS ORDERED: DOCUSATE SODIUM 100 MG CAPSULE PO PRN (05:15)
[2022-04-11 07:53] VITALS: BP 137/74
[2022-04-11] MEDS: HEPARIN SODIUM,PORCINE 5,000 UNITS/ML VIAL SQ SCH ×2 (08:00→16:00)
[2022-04-11] MEDS ORDERED: AMPICILLIN SODIUM/SULBACTAM NA 1.5 GM in SODIUM CHLORIDE 0.9% 50 ML IV SCH (09:00)
[2022-04-11 11:20] VITALS: BP 137/69
[2022-04-11] MEDS ORDERED: CHOL25TA4 PO (11:38)
[2022-04-11] MEDS ORDERED: THIA100T92 PO (11:38)
[2022-04-11] MEDS ORDERED: FOLI-130 PO (11:38)
[2022-04-11] MEDS ORDERED: FLUO20CA36 PO (11:38)
[2022-04-11] MEDS ORDERED: MIRT15TA98 PO (11:38)
[2022-04-11] MEDS ORDERED: CARB-49 PO (11:38)
[2022-04-11] MEDS ORDERED: MULT-1366 PO (11:38)
[2022-04-11] MEDS ORDERED: FAMO20 PO (11:38)
[2022-04-11 14:40] LABS: BASOPHILS % (AUTO) 1.2 % (0.0-2.0); EOSINOPHILS % (AUTO) 0.3 % (1.0-6.0); HEMATOCRIT 34.7 % (41-53); HEMOGLOBIN 10.4 g/dL (13.5-17.5); LYMPHOCYTES # (AUTO) 1.1 K/uL (1.0-4.8); LYMPHOCYTES % (AUTO) 12.2 % (22.0-44.0); MEAN CORPUSCULAR HEMOGLOBIN 23.2 pg (26.0-34.0); MEAN CORPUSCULAR VOLUME 77 fL (80-100); MONOCYTES # (AUTO) 0.7 K/uL (0.1-1.0); MONOCYTES % (AUTO) 7.9 % (2.0-9.0); NEUTROPHILS # (AUTO) 7.2 K/uL (1.8-7.7); NEUTROPHILS % (AUTO) 78.4 % (40.0-70.0); PLATELET COUNT (AUTO) 227 K/uL (150-450); RED BLOOD CELL COUNT(AUTO) 4.49 MIL/uL (4.50-5.90); RED CELL DISTRIBUTION WIDTH 23.5 % (11.5-14.5)
[2022-04-11 14:50] LABS: ANION GAP 6 mmol/L (8-16); CALCIUM, TOTAL 7.9 mg/dL (8.8-10.5); CARBON DIOXIDE 31 mmol/L (22-29); CHLORIDE 103 mmol/L (98-107); CREATININE 0.85 mg/dL (0.60-1.30); GLOMERULAR FILTR. RATE CALC > 60 mL/min (>60); GLUCOSE,RANDOM 100 mg/dL (70-110); POTASSIUM 4.3 mmol/L (3.5-5.1); SODIUM SERUM 140 mmol/L (136-145); UREA NITROGEN, BLOOD 8 mg/dL (7-18)
[2022-04-11 15:01] VITALS: BP 135/66
[2022-04-11 15:15] LABS: PLATELET MORPHOLOGY COMMENT LARGE PLTS PRESENT
[2022-04-11 19:40] VITALS: BP 148/83
[2022-04-11 23:38] VITALS: BP 147/83
[2022-04-12] MEDS: HEPARIN SODIUM,PORCINE 5,000 UNITS/ML VIAL SQ SCH ×3 (00:12→17:45)
[2022-04-12 03:49] VITALS: BP 147/80
[2022-04-12 04:00] VITALS: BP 147/80
[2022-04-12] MEDS ORDERED: LORazepam 2 MG TABLET PO PRN (07:00)
[2022-04-12 07:22] VITALS: BP 123/63
[2022-04-12] MEDS: MULTIVITAMINS WITH MINERALS, THERAPEUTIC TABLET PO SCH (08:36)
[2022-04-12] MEDS: ATORVASTATIN CALCIUM 20 MG TABLET PO SCH (08:37)
[2022-04-12] MEDS: PANTOPRAZOLE SODIUM 40 MG/VIAL IVP SCH (08:37)
[2022-04-12] MEDS ORDERED: LORazepam 2 MG TABLET PO SCH (09:00)
[2022-04-12] MEDS ORDERED: PERFLUTREN PROTEIN-A MICROSPHERES 0.22 MG/ML 3 ML VIAL IVP ONE (10:15)
[2022-04-12 11:14] VITALS: BP 140/66
[2022-04-12 11:25] LABS: EOSINOPHILS % (AUTO) 1.6 % (1.0-6.0); HEMATOCRIT 33.5 % (41-53); HEMOGLOBIN 10.1 g/dL (13.5-17.5); LYMPHOCYTES # (AUTO) 0.7 K/uL (1.0-4.8); MEAN CORPUSCULAR HEMOGLOBIN 23.6 pg (26.0-34.0); MEAN CORPUSCULAR HGB CONC 30.2 G/dL (31.0-37.0); MEAN CORPUSCULAR VOLUME 78 fL (80-100); MONOCYTES # (AUTO) 0.4 K/uL (0.1-1.0); NEUTROPHILS # (AUTO) 6.6 K/uL (1.8-7.7); NEUTROPHILS % (AUTO) 83.4 % (40.0-70.0); PLATELET COUNT (AUTO) 199 K/uL (150-450); RED BLOOD CELL COUNT(AUTO) 4.28 MIL/uL (4.50-5.90); RED CELL DISTRIBUTION WIDTH 23.5 % (11.5-14.5)
[2022-04-12 11:41] LABS: ANION GAP 4 mmol/L (8-16); CALCIUM, TOTAL 8.3 mg/dL (8.8-10.5); CARBON DIOXIDE 30 mmol/L (22-29); CHLORIDE 106 mmol/L (98-107); CREATININE 1.05 mg/dL (0.60-1.30); GLUCOSE,RANDOM 171 mg/dL (70-110); POTASSIUM 4.6 mmol/L (3.5-5.1); SODIUM SERUM 140 mmol/L (136-145); UREA NITROGEN, BLOOD 6 mg/dL (7-18)
[2022-04-12 11:53] LABS: GLOMERULAR FILTR. RATE CALC > 60 mL/min (>60)
[2022-04-12 16:05] VITALS: BP 150/80
[2022-04-12 20:01] VITALS: BP 143/82
[2022-04-12] MEDS: ACETAMINOPHEN 325 MG TABLET PO PRN (21:05)
[2022-04-12] MEDS: LORazepam 2 MG/ML VIAL IVP PRN (21:05)
[2022-04-13] VITALS (7 sets, daily range): BP systolic 132–154; BP diastolic 68–90
[2022-04-13] MEDS: HEPARIN SODIUM,PORCINE 5,000 UNITS/ML VIAL SQ SCH ×3 (00:55→16:00)
[2022-04-13] MEDS: ATORVASTATIN CALCIUM 20 MG TABLET PO SCH (08:36)
[2022-04-13] MEDS: MULTIVITAMINS WITH MINERALS, THERAPEUTIC TABLET PO SCH (08:36)
[2022-04-13] MEDS: ASPIRIN 81 MG DR TABLET PO SCH (08:36)
[2022-04-13] MEDS: ACETAMINOPHEN 325 MG TABLET PO PRN ×2 (08:37→13:07)
[2022-04-13] MEDS: PANTOPRAZOLE SODIUM 40 MG/VIAL IVP SCH (08:39)
[2022-04-13 09:26] LABS: BASOPHILS % (AUTO) 0.4 % (0.0-2.0); EOSINOPHILS % (AUTO) 4.8 % (1.0-6.0); HEMATOCRIT 35.3 % (41-53); HEMOGLOBIN 10.5 g/dL (13.5-17.5); LYMPHOCYTES # (AUTO) 1.1 K/uL (1.0-4.8); LYMPHOCYTES % (AUTO) 13.1 % (22.0-44.0); MEAN CORPUSCULAR HEMOGLOBIN 23.4 pg (26.0-34.0); MEAN CORPUSCULAR HGB CONC 29.9 G/dL (31.0-37.0); MEAN CORPUSCULAR VOLUME 79 fL (80-100); MONOCYTES # (AUTO) 0.5 K/uL (0.1-1.0); MONOCYTES % (AUTO) 5.6 % (2.0-9.0); NEUTROPHILS # (AUTO) 6.3 K/uL (1.8-7.7); NEUTROPHILS % (AUTO) 76.1 % (40.0-70.0); PLATELET COUNT (AUTO) 204 K/uL (150-450); RED CELL DISTRIBUTION WIDTH 23.7 % (11.5-14.5)
[2022-04-13 09:39] LABS: ANION GAP 4 mmol/L (8-16); CALCIUM, TOTAL 8.4 mg/dL (8.8-10.5); CARBON DIOXIDE 30 mmol/L (22-29); CHLORIDE 104 mmol/L (98-107); CREATININE 0.88 mg/dL (0.60-1.30); GLUCOSE,RANDOM 171 mg/dL (70-110); POTASSIUM 4.1 mmol/L (3.5-5.1); SODIUM SERUM 138 mmol/L (136-145); UREA NITROGEN, BLOOD 8 mg/dL (7-18)
[2022-04-13 09:42] LABS: GLOMERULAR FILTR. RATE CALC > 60 mL/min (>60)
[2022-04-13 09:49] LABS: LACTIC ACID 1.7 mmol/L (0.4-2.0)
[2022-04-13] MEDS: LORazepam 2 MG/ML VIAL IVP PRN ×2 (13:07→21:14)
[2022-04-13] MEDS: CIPROFLOXACIN HCL 500 MG TABLET PO SCH ×2 (14:25→20:24)
[2022-04-13 21:19] LABS: GLUCOMETER DEV NAME(LOC) 5N.1C; GLUCOSE,POINT OF CARE 115 MG/DL (70-110)
[2022-04-14 04:15] VITALS: BP 152/87
[2022-04-14] MEDS ORDERED: LORazepam 1 MG TABLET PO PRN (07:00)
[2022-04-14 07:38] VITALS: BP 150/86
[2022-04-14] MEDS: HEPARIN SODIUM,PORCINE 5,000 UNITS/ML VIAL SQ SCH ×3 (08:00→16:00)
[2022-04-14] MEDS: PANTOPRAZOLE SODIUM 40 MG/VIAL IVP SCH (09:00)
[2022-04-14] MEDS ORDERED: LORazepam 1 MG TABLET PO SCH (09:00)
[2022-04-14] MEDS: CIPROFLOXACIN HCL 500 MG TABLET PO SCH (09:20)
[2022-04-14] MEDS: MULTIVITAMINS WITH MINERALS, THERAPEUTIC TABLET PO SCH (09:20)
[2022-04-14] MEDS: ASPIRIN 81 MG DR TABLET PO SCH (09:21)
[2022-04-14] MEDS: ATORVASTATIN CALCIUM 20 MG TABLET PO SCH (09:21)
[2022-04-14] MEDS: LORazepam 2 MG/ML VIAL IVP PRN (11:22)
[2022-04-14] MEDS: ACETAMINOPHEN 325 MG TABLET PO PRN (11:28)
[2022-04-14 11:41] VITALS: BP 120/63
[2022-04-14 15:55] VITALS: BP 143/80
[2022-04-15] MEDS ORDERED: LORazepam 1 MG TABLET PO PRN (07:00)
== END 2022-04-14 18:00 | disposition home or self-care (01) | DRG 92 ==
LOC: EMS 17:06 → 5S 04-11 03:51
PROVIDERS: ADMIT Internal Medicine; ATTEND Internal Medicine
DX: G92.8 Other toxic encephalopathy (principal); E87.20 Acidosis, unspecified; N39.0 Urinary tract infection, site not specified; F10.231 Alcohol dependence with withdrawal delirium; R10.9 Unspecified abdominal pain; F10.229 Alcohol dependence with intoxication, unspecified; I25.10 Atherosclerotic heart disease of native coronary artery without angina pectoris; I10 Essential (primary) hypertension; G31.2 Degeneration of nervous system due to alcohol; K70.9 Alcoholic liver disease, unspecified; Z20.822 Contact with and (suspected) exposure to COVID-19; K21.9 Gastro-esophageal reflux disease without esophagitis; K74.60 Unspecified cirrhosis of liver; F32.A Depression, unspecified; G62.9 Polyneuropathy, unspecified; R55 Syncope and collapse; K59.00 Constipation, unspecified; Z86.73 Personal history of transient ischemic attack (TIA), and cerebral infarction without residual deficits; Z95.1 Presence of aortocoronary bypass graft; Z87.891 Personal history of nicotine dependence; Z95.5 Presence of coronary angioplasty implant and graft; Z90.49 Acquired absence of other specified parts of digestive tract; T50.905A Adverse effect of unspecified drugs, medicaments and biological substances, initial encounter
CPT/HCPCS: 51702; 70450; 71045; 74176; 74177; 80048; 80053; 81001; 82140; 82550; 82962; 83605; 83690; 83735; 83880; 84484; 85025; 85379; 85610; 85730; 87040; 87086; 87186; 93005; 93306; 93970; 97162; 97530; 99285; C8924; C9113; G0480; J0295; J0696; J1644; J2060; J2405; J3411; J3475; J3490; J7030; J7040; J7050; J7120; Q9967; 36415-L1; 36415-TC

== ENCOUNTER 2022-05-17 06:08 | Emergency (ER) | payer MEDICARE, OTHER ==
[~2022-05-17] VITALS: Ht 167.6 cm; Wt 66.8 kg
[~2022-05-17 06:08] MED LIST changes: -AMOX1TAB15 PO; +CARB-49 PO; -CHLO240L TP; -CHOL100018 PO; +CHOL25TA4 PO; +FAMO20 PO; +FOLI-130 PO; -LORA-192 PO; -METO25 PO; -MIRT-89 PO; +MULT-1366 PO; -ONDA-104 PO; -PANT40TA PO; -THIA100T13 PO; +THIA100T92 PO
[2022-05-17 08:02] LABS: BASOPHILS % (AUTO) 0.4 % (0.0-2.0); EOSINOPHILS % (AUTO) 1.9 % (1.0-6.0); HEMATOCRIT 35.9 % (41-53); LYMPHOCYTES # (AUTO) 1.2 K/uL (1.0-4.8); LYMPHOCYTES % (AUTO) 14.9 % (22.0-44.0); MEAN CORPUSCULAR HEMOGLOBIN 23.6 pg (26.0-34.0); MEAN CORPUSCULAR HGB CONC 30.5 G/dL (31.0-37.0); MEAN CORPUSCULAR VOLUME 77 fL (80-100); MONOCYTES # (AUTO) 0.7 K/uL (0.1-1.0); MONOCYTES % (AUTO) 8.8 % (2.0-9.0); NEUTROPHILS # (AUTO) 5.9 K/uL (1.8-7.7); PLATELET COUNT (AUTO) 260 K/uL (150-450); RED BLOOD CELL COUNT(AUTO) 4.66 MIL/uL (4.50-5.90); RED CELL DISTRIBUTION WIDTH 24.7 % (11.5-14.5)
[2022-05-17 08:09] LABS: APPEARANCE,URINE CLEAR (CLEAR); BILIRUBIN,URINE NEGATIVE (NEGATIVE); GLUCOSE, URINE (UA) NEGATIVE (NEGATIVE); KETONES,URINE NEGATIVE (NEGATIVE); LEUKOCYTE ESTERASE ,URINE NEGATIVE (NEGATIVE); NITRATE,URINE NEGATIVE (NEGATIVE); OCCULT BLOOD,URINE NEGATIVE (NEGATIVE); PH,URINE 6.5 (5.0-8.0); PROTEIN,URINE TRACE mg/dL (NEGATIVE); SPECIFIC GRAVITIY, URINE 1.022 (1.003-1.030)
[2022-05-17 08:15] LABS: ANION GAP 5 mmol/L (8-16); CALCIUM, TOTAL 9.2 mg/dL (8.8-10.5); CARBON DIOXIDE 31 mmol/L (22-29); CHLORIDE 102 mmol/L (98-107); CREATININE 0.77 mg/dL (0.60-1.30); GLUCOSE,RANDOM 100 mg/dL (70-110); SODIUM SERUM 138 mmol/L (136-145); UREA NITROGEN, BLOOD 10 mg/dL (7-18)
[2022-05-17 08:17] LABS: BACTERIA,URINE None Seen /HPF (None Seen); RBC,URINE None Seen /HPF (0-2); SQUAMOUS EPITHELIAL CELL,UR Few /LPF (None Seen); WBC,URINE None Seen /HPF (0-5)
[2022-05-17 08:21] LABS: ALANINE AMINOTRANSFERASE 16 U/L (12-78); ALBUMIN 3.6 g/dL (3.4-5.0); ALKALINE PHOSPHATASE 86 U/L (46-116); ASPARTATE AMINOTRANSFERASE 28 U/L (15-37); BILIRUBIN,TOTAL 0.6 mg/dL (0.1-1.0); LIPASE 100 U/L (73-393); TOTAL PROTEIN, SERUM 7.5 g/dL (6.4-8.2)
[2022-05-17 08:25] LABS: GLOMERULAR FILTR. RATE CALC > 60 mL/min (>60)
[2022-05-17] MEDS ORDERED: METOCLOPRAMIDE HCL 5 MG/ML 2 ML VIAL IVP ONE (09:45)
[2022-05-17] MEDS ORDERED: SODIUM CHLORIDE 0.9% 1,000 ML IV ONE (09:45)
[2022-05-17] MEDS ORDERED: FAMOTIDINE 40 MG in SODIUM CHLORIDE 0.9% 100 ML IV ONE (12:00)
[2022-05-17] MEDS ORDERED: SODIUM CHLORIDE 0.9% 100 ML ONE (12:00)
[2022-05-17] MEDS ORDERED: FAMO20 PO (13:50)
[2022-05-17] MEDS ORDERED: ChlordiazePOXIDE HCL 25 MG CAPSULE PO ONE (15:15)
[2022-05-17 15:41] LABS: COVID AG,FIA SOURCE NASOPHARYNGEAL
[2022-05-17 15:44] VITALS: BP 135/68
[2022-05-17 15:47] LABS: INFLUENZA TYPE A NEGATIVE FOR TYPE A (NEGATIVE); INFLUENZA TYPE B NEGATIVE FOR TYPE B (NEGATIVE)
== END 2022-05-17 17:15 | disposition home or self-care (01) ==
LOC: EMS 06:09
DX: R10.13 Epigastric pain (principal); R11.10 Vomiting, unspecified; F32.9 Major depressive disorder, single episode, unspecified; F10.239 Alcohol dependence with withdrawal, unspecified; Z20.822 Contact with and (suspected) exposure to COVID-19; I10 Essential (primary) hypertension; K21.9 Gastro-esophageal reflux disease without esophagitis; Z95.1 Presence of aortocoronary bypass graft; Z85.05 Personal history of malignant neoplasm of liver; Z87.19 Personal history of other diseases of the digestive system; Z90.49 Acquired absence of other specified parts of digestive tract; Z90.89 Acquired absence of other organs
CPT/HCPCS: 99285; 74176; 96365; 96361; 96375; 87426; 80053; 81001; 83690; 83880; 84484; 85025; 87804; 36415; 74022; 93005; G0480; J3490; J2765; J7030; J7050

== ENCOUNTER 2022-07-04 06:17 | Inpatient (IN) | payer MEDICARE, OTHER ==
[~2022-07-04] VITALS: Ht 167.6 cm; Wt 89.8 kg
[~2022-07-04 06:17] MED LIST changes: +LIB25 PO; +THIA100T80 PO; -THIA100T92 PO
[2022-07-04 07:17] LABS: BASOPHILS % (AUTO) 1.9 % (0.0-2.0); EOSINOPHILS % (AUTO) 0.8 % (1.0-6.0); HEMATOCRIT 27.5 % (41-53); LYMPHOCYTES % (AUTO) 11.2 % (22.0-44.0); MEAN CORPUSCULAR HEMOGLOBIN 21.2 pg (26.0-34.0); MEAN CORPUSCULAR HGB CONC 29.1 G/dL (31.0-37.0); MEAN CORPUSCULAR VOLUME 73 fL (80-100); MONOCYTES # (AUTO) 0.7 K/uL (0.1-1.0); MONOCYTES % (AUTO) 7.9 % (2.0-9.0); NEUTROPHILS # (AUTO) 7.2 K/uL (1.8-7.7); NEUTROPHILS % (AUTO) 78.2 % (40.0-70.0); PLATELET COUNT (AUTO) 329 K/uL (150-450); RED BLOOD CELL COUNT(AUTO) 3.76 MIL/uL (4.50-5.90); RED CELL DISTRIBUTION WIDTH 21.8 % (11.5-14.5)
[2022-07-04 07:21] LABS: ANION GAP 13 mmol/L (8-16); CALCIUM, TOTAL 8.4 mg/dL (8.8-10.5); CARBON DIOXIDE 25 mmol/L (22-29); CHLORIDE 104 mmol/L (98-107); CREATININE 1.14 mg/dL (0.60-1.30); GLOMERULAR FILTR. RATE CALC > 60 mL/min (>60); GLUCOSE,RANDOM 87 mg/dL (70-110); POTASSIUM 4.9 mmol/L (3.5-5.1); SODIUM SERUM 142 mmol/L (136-145); UREA NITROGEN, BLOOD 16 mg/dL (7-18)
[2022-07-04 07:27] LABS: ALANINE AMINOTRANSFERASE 11 U/L (12-78); ALBUMIN 3.7 g/dL (3.4-5.0); ALKALINE PHOSPHATASE 68 U/L (46-116); ASPARTATE AMINOTRANSFERASE 17 U/L (15-37); BILIRUBIN,TOTAL 0.8 mg/dL (0.1-1.0); TOTAL PROTEIN, SERUM 7.4 g/dL (6.4-8.2)
[2022-07-04] MEDS ORDERED: KETOROLAC TROMETHAMINE 60 MG/2 ML VIAL IM ONE (08:45)
[2022-07-04] MEDS ORDERED: LORazepam 1 MG TABLET PO ONE (08:45)
[2022-07-04] MEDS ORDERED: ONDANSETRON HCL 4 MG/2 ML VIAL IVP ONE (09:00)
[2022-07-04] MEDS ORDERED: SODIUM CHLORIDE 0.9% 500 ML IV ONE (09:00)
[2022-07-04] MEDS ORDERED: PERCT PO (12:41)
[2022-07-04] MEDS ORDERED: MAGNESIUM HYDROXIDE SUSPENSION 30 ML UDCUP PO PRN (15:00)
[2022-07-04] MEDS ORDERED: MORPHINE SULFATE 2 MG/ML SYRINGE IVP PRN (15:00)
[2022-07-04] MEDS ORDERED: LORazepam 2 MG/ML VIAL IM PRN (15:00)
[2022-07-04] MEDS ORDERED: ACETAMINOPHEN 325 MG TABLET PO PRN (15:00)
[2022-07-04] MEDS ORDERED: ZOLPIDEM TARTRATE 5 MG TABLET PO PRN (15:00)
[2022-07-04] MEDS ORDERED: BISACODYL 10 MG RECTAL RECTAL SUPPOSITORY PR PRN (15:00)
[2022-07-04] MEDS ORDERED: MAGNESIUM SULFATE 2 GM, MVI, ADULT NO.1 WITH VIT K 10 ML, THIAMINE 100 MG, FOLIC ACID 1... IV ONE ×5 (15:30)
[2022-07-04] MEDS: HEPARIN SODIUM,PORCINE 5,000 UNITS/ML VIAL SQ SCH (15:33)
[2022-07-04 15:47] LABS: COVID AG,FIA SOURCE NASAL SWAB
[2022-07-04] MEDS: HYDROCODONE/ACETAMINOPHEN 5-325 MG TABLET PO PRN (20:59)
[2022-07-04] MEDS: DOCUSATE SODIUM 100 MG CAPSULE PO SCH (20:59)
[2022-07-04 21:27] VITALS: BP 139/75
[2022-07-04] MEDS ORDERED: PNEUMOCOCCAL VACCINE POLYVALENT 0.5 ML VIAL [PPSV23] IM. ONE (23:15)
[2022-07-05] MEDS: HEPARIN SODIUM,PORCINE 5,000 UNITS/ML VIAL SQ SCH ×3 (00:10→16:01)
[2022-07-05 05:58] VITALS: BP 112/57
[2022-07-05 06:08] LABS: AMPHET/METH SCREEN,URINE NEGATIVE (NEGATIVE); BARBITURATE SCREEN, URINE NEGATIVE (NEGATIVE); BENZODIAZEPINES SCREEN,URINE POSITIVE (NEGATIVE); CANNABINOID SCREEN,URINE NEGATIVE (NEGATIVE); COCAINE SCREEN,URINE NEGATIVE (NEGATIVE); METHADONE SCREEN, URINE NEGATIVE (NEGATIVE); OPIATE SCREEN,URINE POSITIVE (NEGATIVE)
[2022-07-05 06:10] LABS: PHENCYCLIDINE SCREEN,URINE NEGATIVE (NEGATIVE)
[2022-07-05] MEDS: DOCUSATE SODIUM 100 MG CAPSULE PO SCH ×2 (08:10→19:51)
[2022-07-05] MEDS: PANTOPRAZOLE SODIUM 40 MG DR TABLET PO SCH (08:10)
[2022-07-05 08:36] VITALS: BP 122/58
[2022-07-05] MEDS: HYDROCODONE/ACETAMINOPHEN 5-325 MG TABLET PO PRN ×3 (13:11→20:49)
[2022-07-05 14:42] VITALS: BP 122/66
[2022-07-05 20:00] VITALS: BP 121/54
[2022-07-06] MEDS: HEPARIN SODIUM,PORCINE 5,000 UNITS/ML VIAL SQ SCH ×5 (00:46→23:19)
[2022-07-06] MEDS: HYDROCODONE/ACETAMINOPHEN 5-325 MG TABLET PO PRN ×3 (00:46→15:19)
[2022-07-06] MEDS: ONDANSETRON HCL 4 MG/2 ML VIAL IVP PRN ×2 (01:17→06:24)
[2022-07-06 05:43] VITALS: BP 130/70
[2022-07-06 07:18] VITALS: BP 127/61
[2022-07-06] MEDS: DOCUSATE SODIUM 100 MG CAPSULE PO SCH ×2 (09:00→21:00)
[2022-07-06] MEDS: PANTOPRAZOLE SODIUM 40 MG DR TABLET PO SCH (09:00)
[2022-07-06 15:40] VITALS: BP 133/69
[2022-07-06 21:00] VITALS: BP 115/66
[2022-07-07] MEDS: HYDROCODONE/ACETAMINOPHEN 5-325 MG TABLET PO PRN ×3 (00:23→12:17)
[2022-07-07 05:00] VITALS: BP 114/72
[2022-07-07 07:44] VITALS: BP 129/51
[2022-07-07] MEDS: HEPARIN SODIUM,PORCINE 5,000 UNITS/ML VIAL SQ SCH ×2 (08:00→16:00)
[2022-07-07] MEDS: DOCUSATE SODIUM 100 MG CAPSULE PO SCH (09:00)
[2022-07-07] MEDS: PANTOPRAZOLE SODIUM 40 MG DR TABLET PO SCH (09:00)
[2022-07-07 15:33] VITALS: BP 126/56
== END 2022-07-07 19:30 | DRG 392 ==
LOC: EMS 06:18 → 6S 19:54 → UNDOADMIN 20:53 → 6S 20:53
PROVIDERS: ADMIT Internal Medicine; ATTEND Internal Medicine
DX: K29.20 Alcoholic gastritis without bleeding (principal); F10.139 Alcohol abuse with withdrawal, unspecified; F17.200 Nicotine dependence, unspecified, uncomplicated; J44.9 Chronic obstructive pulmonary disease, unspecified; Z20.822 Contact with and (suspected) exposure to COVID-19; Z91.199 Patient's noncompliance with other medical treatment and regimen due to unspecified reason; F12.90 Cannabis use, unspecified, uncomplicated; M25.562 Pain in left knee; M25.561 Pain in right knee; G20 Parkinson's disease; I10 Essential (primary) hypertension; W06.XXXA Fall from bed, initial encounter; Y93.89 Activity, other specified; Y92.89 Other specified places as the place of occurrence of the external cause; Y99.8 Other external cause status; Z79.82 Long term (current) use of aspirin; Z95.1 Presence of aortocoronary bypass graft; Z95.5 Presence of coronary angioplasty implant and graft
CPT/HCPCS: 71045; 80053; 80307; 85025; 93005; 97110; 97162; 97530; 99285; G0378; J1644; J1885; J2405; J3411; J3475; J3490; J7030; 36415-L1; 36415-TC

== ENCOUNTER 2022-07-10 15:43 | Inpatient (IN) | payer MEDICARE, OTHER ==
[~2022-07-10] VITALS: Ht 167.6 cm; Wt 82.0 kg
[2022-07-10] VITALS (7 sets, daily range): BP systolic 131–160; BP diastolic 58–84
[2022-07-10] MEDS ORDERED: PANTOPRAZOLE SODIUM 40 MG/VIAL IVP ONE (16:15)
[2022-07-10 16:53] LABS: BASOPHILS % (AUTO) 1.5 % (0.0-2.0); LYMPHOCYTES # (AUTO) 0.8 K/uL (1.0-4.8); LYMPHOCYTES % (AUTO) 10.9 % (22.0-44.0); MEAN CORPUSCULAR HEMOGLOBIN 20.8 pg (26.0-34.0); MEAN CORPUSCULAR HGB CONC 28.4 G/dL (31.0-37.0); MEAN CORPUSCULAR VOLUME 73 fL (80-100); MONOCYTES # (AUTO) 0.7 K/uL (0.1-1.0); MONOCYTES % (AUTO) 9.8 % (2.0-9.0); NEUTROPHILS # (AUTO) 5.7 K/uL (1.8-7.7); NEUTROPHILS % (AUTO) 75.8 % (40.0-70.0); PLATELET COUNT (AUTO) 246 K/uL (150-450); RED BLOOD CELL COUNT(AUTO) 2.85 MIL/uL (4.50-5.90); RED CELL DISTRIBUTION WIDTH 22.2 % (11.5-14.5)
[2022-07-10 17:00] LABS: ANION GAP 3 mmol/L (8-16); CALCIUM, TOTAL 8.3 mg/dL (8.8-10.5); CARBON DIOXIDE 27 mmol/L (22-29); CHLORIDE 107 mmol/L (98-107); CREATININE 1.01 mg/dL (0.60-1.30); GLUCOSE,RANDOM 128 mg/dL (70-110); POTASSIUM 4.1 mmol/L (3.5-5.1); PROTHROMBIN TIME 10.4 SEC (9.4-11.6); SODIUM SERUM 137 mmol/L (136-145); UREA NITROGEN, BLOOD 16 mg/dL (7-18)
[2022-07-10 17:01] LABS: HEMATOCRIT 20.9 % (41-53); HEMOGLOBIN 5.9 g/dL (13.5-17.5)
[2022-07-10 17:02] LABS: GLOMERULAR FILTR. RATE CALC > 60 mL/min (>60)
[2022-07-10] MEDS: PANTOPRAZOLE SODIUM 80 MG in SODIUM CHLORIDE 0.9% 100 ML IV SCH (17:05)
[2022-07-10 17:06] LABS: ALANINE AMINOTRANSFERASE 10 U/L (12-78); ALBUMIN 3.1 g/dL (3.4-5.0); ALKALINE PHOSPHATASE 72 U/L (46-116); ASPARTATE AMINOTRANSFERASE 13 U/L (15-37); BILIRUBIN,TOTAL 0.4 mg/dL (0.1-1.0); LIPASE 86 U/L (73-393); TOTAL PROTEIN, SERUM 6.8 g/dL (6.4-8.2)
[2022-07-10] MEDS ORDERED: ONDANSETRON HCL 4 MG/2 ML VIAL IVP PRN ×2 (17:45→22:15)
[2022-07-10 17:47] LABS: COVID AG,FIA SOURCE NASOPHARYNGEAL
[2022-07-10] MEDS ORDERED: ACETAMINOPHEN 325 MG TABLET PO PRN (22:15)
[2022-07-10] MEDS ORDERED: MAGNESIUM HYDROXIDE SUSPENSION 30 ML UDCUP PO PRN (22:15)
[2022-07-10] MEDS ORDERED: BISACODYL 10 MG RECTAL RECTAL SUPPOSITORY PR PRN (22:15)
[2022-07-10] MEDS ORDERED: ALBUTEROL SULFATE 2.5 MG/0.5 ML NEB SOLUTION NEB PRN (22:15)
[2022-07-10] MEDS ORDERED: IPRATROPIUM BROMIDE 0.5 MG/2.5 ML NEB SOLUTION NEB PRN (22:15)
[2022-07-10] MEDS ORDERED: OXYC-38 PO (22:23)
[2022-07-10] MEDS ORDERED: PANT-31 PO (22:23)
[2022-07-10] MEDS ORDERED: ACET-784 PO (22:28)
[2022-07-10] MEDS: ZOLPIDEM TARTRATE 5 MG TABLET PO PRN (22:59)
[2022-07-10] MEDS: MORPHINE SULFATE 2 MG/ML SYRINGE IVP PRN (23:00)
[2022-07-11] VITALS (8 sets, daily range): BP systolic 127–153; BP diastolic 59–87
[2022-07-11] MEDS: PANTOPRAZOLE SODIUM 80 MG in SODIUM CHLORIDE 0.9% 100 ML IV SCH ×4 (01:20→22:29)
[2022-07-11] MEDS: MORPHINE SULFATE 2 MG/ML SYRINGE IVP PRN (04:03)
[2022-07-11 05:54] LABS: BASOPHILS % (AUTO) 0.9 % (0.0-2.0); EOSINOPHILS % (AUTO) 3.2 % (1.0-6.0); HEMATOCRIT 26.6 % (41-53); HEMOGLOBIN 8.1 g/dL (13.5-17.5); LYMPHOCYTES # (AUTO) 0.9 K/uL (1.0-4.8); LYMPHOCYTES % (AUTO) 12.9 % (22.0-44.0); MEAN CORPUSCULAR HEMOGLOBIN 23.6 pg (26.0-34.0); MEAN CORPUSCULAR HGB CONC 30.4 G/dL (31.0-37.0); MEAN CORPUSCULAR VOLUME 78 fL (80-100); MONOCYTES # (AUTO) 0.7 K/uL (0.1-1.0); MONOCYTES % (AUTO) 10.5 % (2.0-9.0); NEUTROPHILS # (AUTO) 4.8 K/uL (1.8-7.7); NEUTROPHILS % (AUTO) 72.5 % (40.0-70.0); PLATELET COUNT (AUTO) 210 K/uL (150-450); RED BLOOD CELL COUNT(AUTO) 3.41 MIL/uL (4.50-5.90); RED CELL DISTRIBUTION WIDTH 24.8 % (11.5-14.5)
[2022-07-11 06:07] LABS: ALANINE AMINOTRANSFERASE 12 U/L (12-78); ALKALINE PHOSPHATASE 56 U/L (46-116); ANION GAP 9 mmol/L (8-16); ASPARTATE AMINOTRANSFERASE 16 U/L (15-37); BILIRUBIN,TOTAL 1.2 mg/dL (0.1-1.0); CARBON DIOXIDE 25 mmol/L (22-29); CHLORIDE 109 mmol/L (98-107); CREATININE 0.89 mg/dL (0.60-1.30); GLUCOSE,RANDOM 100 mg/dL (70-110); POTASSIUM 3.9 mmol/L (3.5-5.1); SODIUM SERUM 143 mmol/L (136-145); TOTAL PROTEIN, SERUM 6.5 g/dL (6.4-8.2); UREA NITROGEN, BLOOD 10 mg/dL (7-18)
[2022-07-11 06:11] LABS: GLOMERULAR FILTR. RATE CALC > 60 mL/min (>60)
[2022-07-11] MEDS ORDERED: SODIUM CHLORIDE 0.9% 1,000 ML ONE (10:05)
[2022-07-11] MEDS: METOPROLOL TARTRATE 25 MG TABLET PO SCH ×2 (11:28→21:33)
[2022-07-11 17:36] LABS: BASOPHILS % (AUTO) 1.4 % (0.0-2.0); EOSINOPHILS % (AUTO) 2.5 % (1.0-6.0); HEMATOCRIT 27.7 % (41-53); HEMOGLOBIN 8.4 g/dL (13.5-17.5); LYMPHOCYTES % (AUTO) 14.5 % (22.0-44.0); MEAN CORPUSCULAR HEMOGLOBIN 23.6 pg (26.0-34.0); MEAN CORPUSCULAR HGB CONC 30.4 G/dL (31.0-37.0); MEAN CORPUSCULAR VOLUME 78 fL (80-100); MONOCYTES # (AUTO) 0.9 K/uL (0.1-1.0); MONOCYTES % (AUTO) 13.6 % (2.0-9.0); NEUTROPHILS # (AUTO) 4.5 K/uL (1.8-7.7); PLATELET COUNT (AUTO) 227 K/uL (150-450); RED BLOOD CELL COUNT(AUTO) 3.55 MIL/uL (4.50-5.90)
[2022-07-11] MEDS: ZOLPIDEM TARTRATE 5 MG TABLET PO PRN (21:35)
[2022-07-12 05:12] VITALS: BP 119/52
[2022-07-12 05:52] LABS: BASOPHILS % (AUTO) 1.3 % (0.0-2.0); EOSINOPHILS % (AUTO) 2.9 % (1.0-6.0); HEMATOCRIT 27.3 % (41-53); HEMOGLOBIN 8.3 g/dL (13.5-17.5); LYMPHOCYTES # (AUTO) 1.1 K/uL (1.0-4.8); LYMPHOCYTES % (AUTO) 14.1 % (22.0-44.0); MEAN CORPUSCULAR HEMOGLOBIN 23.6 pg (26.0-34.0); MEAN CORPUSCULAR HGB CONC 30.5 G/dL (31.0-37.0); MEAN CORPUSCULAR VOLUME 78 fL (80-100); MONOCYTES # (AUTO) 0.9 K/uL (0.1-1.0); NEUTROPHILS # (AUTO) 5.3 K/uL (1.8-7.7); NEUTROPHILS % (AUTO) 69.7 % (40.0-70.0); PLATELET COUNT (AUTO) 227 K/uL (150-450); RED BLOOD CELL COUNT(AUTO) 3.52 MIL/uL (4.50-5.90); RED CELL DISTRIBUTION WIDTH 24.9 % (11.5-14.5)
[2022-07-12 06:15] LABS: ALANINE AMINOTRANSFERASE 13 U/L (12-78); ALBUMIN 3.1 g/dL (3.4-5.0); ALKALINE PHOSPHATASE 57 U/L (46-116); ANION GAP 7 mmol/L (8-16); ASPARTATE AMINOTRANSFERASE 15 U/L (15-37); BILIRUBIN,TOTAL 1.3 mg/dL (0.1-1.0); CALCIUM, TOTAL 8.1 mg/dL (8.8-10.5); CARBON DIOXIDE 24 mmol/L (22-29); CHLORIDE 107 mmol/L (98-107); CREATININE 0.96 mg/dL (0.60-1.30); GLUCOSE,RANDOM 88 mg/dL (70-110); POTASSIUM 4.2 mmol/L (3.5-5.1); SODIUM SERUM 138 mmol/L (136-145); TOTAL PROTEIN, SERUM 6.8 g/dL (6.4-8.2); UREA NITROGEN, BLOOD 10 mg/dL (7-18)
[2022-07-12 06:24] LABS: GLOMERULAR FILTR. RATE CALC > 60 mL/min (>60)
[2022-07-12 07:09] VITALS: BP 130/77
[2022-07-12] MEDS: METOPROLOL TARTRATE 25 MG TABLET PO SCH ×2 (08:40→20:28)
[2022-07-12] MEDS: PANTOPRAZOLE SODIUM 80 MG in SODIUM CHLORIDE 0.9% 100 ML IV SCH (08:42)
[2022-07-12] MEDS ORDERED: SODIUM CHLORIDE 0.9% 1,000 ML IV ONE (10:45)
[2022-07-12] MEDS ORDERED: SODIUM CHLORIDE 0.9% 1,000 ML ONE (11:03)
[2022-07-12] MEDS ORDERED: PEG 3350/NA SULF,BICARB,CL/KCL 4000 ML SOLUTION PO ONE (12:30)
[2022-07-12 14:07] VITALS: BP 122/63
[2022-07-12 15:00] VITALS: BP 101/51
[2022-07-12 20:09] VITALS: BP 135/65
[2022-07-12] MEDS: MORPHINE SULFATE 2 MG/ML SYRINGE IVP PRN (20:28)
[2022-07-12] MEDS: ZOLPIDEM TARTRATE 5 MG TABLET PO PRN (22:32)
[2022-07-13] VITALS (7 sets, daily range): BP systolic 105–135; BP diastolic 59–74
[2022-07-13 06:52] LABS: ALANINE AMINOTRANSFERASE 15 U/L (12-78); ALBUMIN 3.1 g/dL (3.4-5.0); ALKALINE PHOSPHATASE 51 U/L (46-116); ANION GAP 9 mmol/L (8-16); ASPARTATE AMINOTRANSFERASE 14 U/L (15-37); CALCIUM, TOTAL 8.2 mg/dL (8.8-10.5); CARBON DIOXIDE 25 mmol/L (22-29); CHLORIDE 104 mmol/L (98-107); CREATININE 1.01 mg/dL (0.60-1.30); GLOMERULAR FILTR. RATE CALC > 60 mL/min (>60); GLUCOSE,RANDOM 95 mg/dL (70-110); POTASSIUM 4.1 mmol/L (3.5-5.1); SODIUM SERUM 138 mmol/L (136-145); TOTAL PROTEIN, SERUM 6.8 g/dL (6.4-8.2); UREA NITROGEN, BLOOD 6 mg/dL (7-18)
[2022-07-13 07:00] LABS: EOSINOPHILS % (AUTO) 3.2 % (1.0-6.0); HEMATOCRIT 27.5 % (41-53); HEMOGLOBIN 8.3 g/dL (13.5-17.5); LYMPHOCYTES % (AUTO) 12.7 % (22.0-44.0); MEAN CORPUSCULAR HEMOGLOBIN 23.3 pg (26.0-34.0); MEAN CORPUSCULAR HGB CONC 30.1 G/dL (31.0-37.0); MEAN CORPUSCULAR VOLUME 77 fL (80-100); MONOCYTES # (AUTO) 1.1 K/uL (0.1-1.0); MONOCYTES % (AUTO) 12.8 % (2.0-9.0); NEUTROPHILS # (AUTO) 5.8 K/uL (1.8-7.7); NEUTROPHILS % (AUTO) 70.3 % (40.0-70.0); PLATELET COUNT (AUTO) 244 K/uL (150-450); RED BLOOD CELL COUNT(AUTO) 3.56 MIL/uL (4.50-5.90); RED CELL DISTRIBUTION WIDTH 25.1 % (11.5-14.5)
[2022-07-13 07:37] LABS: PLATELET MORPHOLOGY COMMENT LARGE PLTS PRESENT
[2022-07-13] MEDS: METOPROLOL TARTRATE 25 MG TABLET PO SCH ×2 (08:05→20:28)
[2022-07-13] MEDS: ZOLPIDEM TARTRATE 5 MG TABLET PO PRN (20:28)
[2022-07-13] MEDS: MORPHINE SULFATE 2 MG/ML SYRINGE IVP PRN (20:28)
[2022-07-14] MEDS: MORPHINE SULFATE 2 MG/ML SYRINGE IVP PRN ×5 (00:49→21:58)
[2022-07-14 04:16] VITALS: BP 115/65
[2022-07-14 06:32] LABS: BASOPHILS % (AUTO) 1.5 % (0.0-2.0); EOSINOPHILS % (AUTO) 3.9 % (1.0-6.0); HEMATOCRIT 29.5 % (41-53); HEMOGLOBIN 8.9 g/dL (13.5-17.5); LYMPHOCYTES % (AUTO) 14.1 % (22.0-44.0); MEAN CORPUSCULAR HEMOGLOBIN 23.2 pg (26.0-34.0); MEAN CORPUSCULAR VOLUME 77 fL (80-100); MONOCYTES % (AUTO) 13.9 % (2.0-9.0); NEUTROPHILS # (AUTO) 4.8 K/uL (1.8-7.7); NEUTROPHILS % (AUTO) 66.6 % (40.0-70.0); PLATELET COUNT (AUTO) 261 K/uL (150-450); RED BLOOD CELL COUNT(AUTO) 3.83 MIL/uL (4.50-5.90); RED CELL DISTRIBUTION WIDTH 25.3 % (11.5-14.5)
[2022-07-14 07:10] VITALS: BP 123/66
[2022-07-14 07:21] LABS: ALANINE AMINOTRANSFERASE 13 U/L (12-78); ALBUMIN 3.3 g/dL (3.4-5.0); ALKALINE PHOSPHATASE 57 U/L (46-116); ANION GAP 8 mmol/L (8-16); ASPARTATE AMINOTRANSFERASE 13 U/L (15-37); BILIRUBIN,TOTAL 0.9 mg/dL (0.1-1.0); CALCIUM, TOTAL 8.5 mg/dL (8.8-10.5); CARBON DIOXIDE 25 mmol/L (22-29); CHLORIDE 102 mmol/L (98-107); CREATININE 0.99 mg/dL (0.60-1.30); GLUCOSE,RANDOM 94 mg/dL (70-110); SODIUM SERUM 135 mmol/L (136-145); TOTAL PROTEIN, SERUM 7.4 g/dL (6.4-8.2); UREA NITROGEN, BLOOD 5 mg/dL (7-18)
[2022-07-14 07:23] LABS: GLOMERULAR FILTR. RATE CALC > 60 mL/min (>60)
[2022-07-14] MEDS: METOPROLOL TARTRATE 25 MG TABLET PO SCH ×2 (08:19→20:10)
[2022-07-14 11:09] VITALS: BP 109/59
[2022-07-14 15:24] VITALS: BP 114/68
[2022-07-14 19:39] VITALS: BP 140/69
[2022-07-14] MEDS: ZOLPIDEM TARTRATE 5 MG TABLET PO PRN (20:10)
[2022-07-14 23:05] VITALS: BP 129/66
[2022-07-15] MEDS: MORPHINE SULFATE 2 MG/ML SYRINGE IVP PRN ×2 (03:22→08:59)
[2022-07-15 04:16] VITALS: BP 150/75
[2022-07-15 06:58] LABS: BASOPHILS % (AUTO) 0.9 % (0.0-2.0); EOSINOPHILS % (AUTO) 3.4 % (1.0-6.0); HEMATOCRIT 29.2 % (41-53); HEMOGLOBIN 8.8 g/dL (13.5-17.5); LYMPHOCYTES # (AUTO) 1.2 K/uL (1.0-4.8); LYMPHOCYTES % (AUTO) 14.3 % (22.0-44.0); MEAN CORPUSCULAR HEMOGLOBIN 23.5 pg (26.0-34.0); MEAN CORPUSCULAR HGB CONC 30.3 G/dL (31.0-37.0); MEAN CORPUSCULAR VOLUME 78 fL (80-100); MONOCYTES # (AUTO) 0.8 K/uL (0.1-1.0); MONOCYTES % (AUTO) 10.2 % (2.0-9.0); NEUTROPHILS # (AUTO) 5.8 K/uL (1.8-7.7); NEUTROPHILS % (AUTO) 71.2 % (40.0-70.0); PLATELET COUNT (AUTO) 280 K/uL (150-450); RED BLOOD CELL COUNT(AUTO) 3.76 MIL/uL (4.50-5.90); RED CELL DISTRIBUTION WIDTH 25.2 % (11.5-14.5)
[2022-07-15 08:04] LABS: ALANINE AMINOTRANSFERASE 15 U/L (12-78); ALBUMIN 3.3 g/dL (3.4-5.0); ALKALINE PHOSPHATASE 65 U/L (46-116); ANION GAP 7 mmol/L (8-16); ASPARTATE AMINOTRANSFERASE 15 U/L (15-37); BILIRUBIN,TOTAL 0.6 mg/dL (0.1-1.0); CALCIUM, TOTAL 8.2 mg/dL (8.8-10.5); CARBON DIOXIDE 28 mmol/L (22-29); CHLORIDE 105 mmol/L (98-107); CREATININE 0.91 mg/dL (0.60-1.30); GLUCOSE,RANDOM 95 mg/dL (70-110); POTASSIUM 4.3 mmol/L (3.5-5.1); SODIUM SERUM 140 mmol/L (136-145); TOTAL PROTEIN, SERUM 7.4 g/dL (6.4-8.2); UREA NITROGEN, BLOOD 4 mg/dL (7-18)
[2022-07-15 08:06] LABS: GLOMERULAR FILTR. RATE CALC > 60 mL/min (>60)
[2022-07-15 08:11] VITALS: BP 134/60
[2022-07-15] MEDS: METOPROLOL TARTRATE 25 MG TABLET PO SCH ×2 (08:57→20:40)
[2022-07-15] MEDS ORDERED: SODIUM CHLORIDE 0.9% 1,000 ML IV ONE (09:00)
[2022-07-15] MEDS ORDERED: SODIUM CHLORIDE 0.9% 1,000 ML ONE (10:52)
[2022-07-15 11:04] VITALS: BP 104/57
[2022-07-15] MEDS ORDERED: EPINEPHrine 1:10,000 [1 MG/10 ML] SYRINGE ONE (11:43)
[2022-07-15] MEDS ORDERED: PROPOFOL 1% 20 ML VIAL IVP ONE (12:00)
[2022-07-15 15:26] VITALS: BP 119/57
[2022-07-15] MEDS: HYDROCODONE/ACETAMINOPHEN 5-325 MG TABLET PO PRN ×2 (15:33→20:40)
[2022-07-15 19:27] VITALS: BP 131/63
[2022-07-15] MEDS: ZOLPIDEM TARTRATE 5 MG TABLET PO PRN (20:40)
[2022-07-15 23:57] VITALS: BP 103/50
[2022-07-16] VITALS (7 sets, daily range): BP systolic 104–132; BP diastolic 55–67
[2022-07-16 06:16] LABS: BASOPHILS % (AUTO) 1.3 % (0.0-2.0); EOSINOPHILS % (AUTO) 2.4 % (1.0-6.0); HEMATOCRIT 27.5 % (41-53); HEMOGLOBIN 8.3 g/dL (13.5-17.5); LYMPHOCYTES # (AUTO) 1.1 K/uL (1.0-4.8); LYMPHOCYTES % (AUTO) 14.1 % (22.0-44.0); MEAN CORPUSCULAR HEMOGLOBIN 23.3 pg (26.0-34.0); MEAN CORPUSCULAR HGB CONC 30.3 G/dL (31.0-37.0); MEAN CORPUSCULAR VOLUME 77 fL (80-100); MONOCYTES # (AUTO) 0.8 K/uL (0.1-1.0); MONOCYTES % (AUTO) 10.8 % (2.0-9.0); NEUTROPHILS # (AUTO) 5.4 K/uL (1.8-7.7); NEUTROPHILS % (AUTO) 71.4 % (40.0-70.0); PLATELET COUNT (AUTO) 266 K/uL (150-450); RED BLOOD CELL COUNT(AUTO) 3.57 MIL/uL (4.50-5.90); RED CELL DISTRIBUTION WIDTH 25.4 % (11.5-14.5)
[2022-07-16 06:38] LABS: ALANINE AMINOTRANSFERASE 14 U/L (12-78); ALBUMIN 3.1 g/dL (3.4-5.0); ALKALINE PHOSPHATASE 66 U/L (46-116); ANION GAP 7 mmol/L (8-16); ASPARTATE AMINOTRANSFERASE 10 U/L (15-37); BILIRUBIN,TOTAL 0.5 mg/dL (0.1-1.0); CALCIUM, TOTAL 8.5 mg/dL (8.8-10.5); CARBON DIOXIDE 27 mmol/L (22-29); CHLORIDE 104 mmol/L (98-107); CREATININE 1.14 mg/dL (0.60-1.30); GLUCOSE,RANDOM 106 mg/dL (70-110); POTASSIUM 4.6 mmol/L (3.5-5.1); SODIUM SERUM 138 mmol/L (136-145); UREA NITROGEN, BLOOD 11 mg/dL (7-18)
[2022-07-16 06:45] LABS: GLOMERULAR FILTR. RATE CALC > 60 mL/min (>60)
[2022-07-16] MEDS: METOPROLOL TARTRATE 25 MG TABLET PO SCH ×2 (08:02→20:29)
[2022-07-16] MEDS: HYDROCODONE/ACETAMINOPHEN 5-325 MG TABLET PO PRN (20:29)
[2022-07-17 01:34] LABS: COVID AG,FIA SOURCE NASOPHARYNGEAL
[2022-07-17 03:20] VITALS: BP 105/51
[2022-07-17 07:54] LABS: BASOPHILS % (AUTO) 1.8 % (0.0-2.0); EOSINOPHILS % (AUTO) 3.2 % (1.0-6.0); HEMATOCRIT 26.5 % (41-53); LYMPHOCYTES # (AUTO) 1.2 K/uL (1.0-4.8); LYMPHOCYTES % (AUTO) 16.5 % (22.0-44.0); MEAN CORPUSCULAR HEMOGLOBIN 23.1 pg (26.0-34.0); MEAN CORPUSCULAR HGB CONC 30.2 G/dL (31.0-37.0); MEAN CORPUSCULAR VOLUME 76 fL (80-100); MONOCYTES # (AUTO) 0.7 K/uL (0.1-1.0); MONOCYTES % (AUTO) 9.3 % (2.0-9.0); NEUTROPHILS # (AUTO) 5.1 K/uL (1.8-7.7); NEUTROPHILS % (AUTO) 69.2 % (40.0-70.0); PLATELET COUNT (AUTO) 278 K/uL (150-450); RED BLOOD CELL COUNT(AUTO) 3.48 MIL/uL (4.50-5.90); RED CELL DISTRIBUTION WIDTH 25.2 % (11.5-14.5)
[2022-07-17 07:55] VITALS: BP 106/52
[2022-07-17 08:06] LABS: ALANINE AMINOTRANSFERASE 16 U/L (12-78); ALBUMIN 3.2 g/dL (3.4-5.0); ALKALINE PHOSPHATASE 66 U/L (46-116); ANION GAP 7 mmol/L (8-16); ASPARTATE AMINOTRANSFERASE 15 U/L (15-37); BILIRUBIN,TOTAL 0.5 mg/dL (0.1-1.0); CALCIUM, TOTAL 8.6 mg/dL (8.8-10.5); CARBON DIOXIDE 27 mmol/L (22-29); CHLORIDE 103 mmol/L (98-107); CREATININE 1.03 mg/dL (0.60-1.30); GLUCOSE,RANDOM 96 mg/dL (70-110); POTASSIUM 4.2 mmol/L (3.5-5.1); SODIUM SERUM 137 mmol/L (136-145); TOTAL PROTEIN, SERUM 7.2 g/dL (6.4-8.2); UREA NITROGEN, BLOOD 14 mg/dL (7-18)
[2022-07-17 08:07] LABS: GLOMERULAR FILTR. RATE CALC > 60 mL/min (>60)
== END 2022-07-17 08:23 | DRG 378 ==
LOC: EMS 15:51 → 5S 20:15
PROVIDERS: ADMIT Hospitalist; ATTEND Hospitalist
PROC: 30233N1 Transfusion of Nonautologous Red Blood Cells into Peripheral Vein, Percutaneous Approach (ICD-10-PCS; 2022-07-10)
PROC: 0DB78ZX Excision of Stomach, Pylorus, Via Natural or Artificial Opening Endoscopic, Diagnostic (ICD-10-PCS; 2022-07-12)
PROC: 0DJD8ZZ Inspection of Lower Intestinal Tract, Via Natural or Artificial Opening Endoscopic (ICD-10-PCS; principal; 2022-07-15 12:10)
DX: K29.71 Gastritis, unspecified, with bleeding (principal); E44.1 Mild protein-calorie malnutrition; I47.1 Supraventricular tachycardia; K57.91 Diverticulosis of intestine, part unspecified, without perforation or abscess with bleeding; K44.9 Diaphragmatic hernia without obstruction or gangrene; G20 Parkinson's disease; I10 Essential (primary) hypertension; I25.10 Atherosclerotic heart disease of native coronary artery without angina pectoris; J44.9 Chronic obstructive pulmonary disease, unspecified; K21.9 Gastro-esophageal reflux disease without esophagitis; K70.30 Alcoholic cirrhosis of liver without ascites; D50.0 Iron deficiency anemia secondary to blood loss (chronic); K64.8 Other hemorrhoids; F32.A Depression, unspecified; Z20.822 Contact with and (suspected) exposure to COVID-19; Z72.0 Tobacco use; Z90.49 Acquired absence of other specified parts of digestive tract; Z95.1 Presence of aortocoronary bypass graft; Z95.5 Presence of coronary angioplasty implant and graft; Z68.29 Body mass index [BMI] 29.0-29.9, adult; Z79.82 Long term (current) use of aspirin
CPT/HCPCS: 71045; 74176; 80053; 83690; 83735; 84484; 85025; 85610; 86850; 86900; 86901; 86923; 87081; 88305; 88312; 93005; 97162; 99291; C9113; J0171; J2270; J2704; J7030; J7050; P9016; 36415-L1; 36415-TC

== ENCOUNTER 2022-08-11 17:34 | Inpatient (IN) | payer MEDICARE, OTHER ==
[~2022-08-11] VITALS: Ht 167.6 cm; Wt 79.5 kg
[~2022-08-11 17:34] MED LIST changes: +ACET-784 PO; -FAMO20 PO; -FOLI-130 PO; -LIB25 PO; +OXYC-38 PO; +PANT-31 PO
[2022-08-11 21:27] LABS: BASOPHILS % (AUTO) 2.2 % (0.0-2.0); EOSINOPHILS % (AUTO) 3.2 % (1.0-6.0); HEMATOCRIT 29.3 % (41-53); HEMOGLOBIN 8.5 g/dL (13.5-17.5); LYMPHOCYTES # (AUTO) 1.2 K/uL (1.0-4.8); LYMPHOCYTES % (AUTO) 20.1 % (22.0-44.0); MEAN CORPUSCULAR HEMOGLOBIN 20.7 pg (26.0-34.0); MEAN CORPUSCULAR HGB CONC 28.9 G/dL (31.0-37.0); MEAN CORPUSCULAR VOLUME 72 fL (80-100); MONOCYTES # (AUTO) 0.5 K/uL (0.1-1.0); MONOCYTES % (AUTO) 7.6 % (2.0-9.0); NEUTROPHILS # (AUTO) 4.1 K/uL (1.8-7.7); NEUTROPHILS % (AUTO) 66.9 % (40.0-70.0); PLATELET COUNT (AUTO) 243 K/uL (150-450); RED CELL DISTRIBUTION WIDTH 27.1 % (11.5-14.5)
[2022-08-11 21:28] LABS: ANION GAP 9 mmol/L (8-16); CALCIUM, TOTAL 7.9 mg/dL (8.8-10.5); CARBON DIOXIDE 29 mmol/L (22-29); CHLORIDE 105 mmol/L (98-107); CREATININE 0.98 mg/dL (0.60-1.30); GLOMERULAR FILTR. RATE CALC > 60 mL/min (>60); GLUCOSE,RANDOM 114 mg/dL (70-110); POTASSIUM 3.5 mmol/L (3.5-5.1); SODIUM SERUM 143 mmol/L (136-145); UREA NITROGEN, BLOOD 9 mg/dL (7-18)
[2022-08-11 21:34] LABS: ALBUMIN 3.8 g/dL (3.4-5.0); ALKALINE PHOSPHATASE 92 U/L (46-116); ASPARTATE AMINOTRANSFERASE 16 U/L (15-37); BILIRUBIN,TOTAL 0.6 mg/dL (0.1-1.0); LIPASE 171 U/L (73-393); TOTAL PROTEIN, SERUM 8.2 g/dL (6.4-8.2)
[2022-08-11 21:44] LABS: ALANINE AMINOTRANSFERASE 10 U/L (12-78)
[2022-08-12] MEDS ORDERED: ACETAMINOPHEN 500 MG TABLET PO ONE (02:45)
[2022-08-12] MEDS ORDERED: LORazepam 1 MG TABLET PO ONE (04:00)
[2022-08-12] MEDS ORDERED: MAGNESIUM SULFATE 2 GM, MVI, ADULT NO.1 WITH VIT K 10 ML, THIAMINE 100 MG, FOLIC ACID 1... IV ONE ×5 (04:15)
[2022-08-12] MEDS ORDERED: LORazepam 2 MG/ML VIAL IVP ONE (04:15)
[2022-08-12] MEDS ORDERED: 0.9% SODIUM CHLORIDE 10 ML SYRINGE IVP PRN (04:15)
[2022-08-12] MEDS ORDERED: PANTOPRAZOLE SODIUM 40 MG/VIAL IVP ONE (04:15)
[2022-08-12] MEDS ORDERED: ONDANSETRON HCL 4 MG/2 ML VIAL IVP ONE (04:15)
[2022-08-12] MEDS ORDERED: SODIUM CHLORIDE 0.9% 1,000 ML IV ONE (04:15)
[2022-08-12] MEDS ORDERED: PANTOPRAZOLE SODIUM 80 MG in SODIUM CHLORIDE 0.9% 100 ML IV SCH (04:30)
[2022-08-12 06:06] LABS: COVID AG,FIA SOURCE NASOPHARYNGEAL
[2022-08-12] MEDS ORDERED: ONDANSETRON HCL 4 MG/2 ML VIAL IVP PRN (06:30)
[2022-08-12] MEDS ORDERED: LORazepam 2 MG TABLET PO PRN (06:30)
[2022-08-12] MEDS ORDERED: ACETAMINOPHEN 325 MG TABLET PO PRN (06:30)
[2022-08-12 07:05] VITALS: BP 146/82
[2022-08-12] MEDS ORDERED: ALBUTEROL SULFATE 2.5 MG/0.5 ML NEB SOLUTION NEB PRN (08:00)
[2022-08-12] MEDS ORDERED: IPRATROPIUM BROMIDE 0.5 MG/2.5 ML NEB SOLUTION NEB PRN (08:00)
[2022-08-12 08:24] VITALS: BP 132/67
[2022-08-12 10:45] VITALS: BP 140/93
[2022-08-12 15:56] VITALS: BP 148/85
[2022-08-12 20:00] VITALS: BP 143/73
[2022-08-12] MEDS: MULTIVITAMINS WITH IRON TABLET PO SCH (21:00)
[2022-08-12] MEDS: LORazepam 2 MG/ML VIAL IVP PRN (21:01)
[2022-08-13] VITALS: BP 142/68
[2022-08-13] MEDS: LORazepam 2 MG/ML VIAL IVP PRN (01:08)
[2022-08-13 04:00] VITALS: BP 144/74
[2022-08-13] MEDS ORDERED: LORazepam 2 MG TABLET PO PRN (07:00)
[2022-08-13 08:28] VITALS: BP_SYST 115; BP_SYST 145; BP_DIAS 71
[2022-08-13] MEDS ORDERED: LORazepam 2 MG TABLET PO SCH (09:00)
[2022-08-13] MEDS ORDERED: PANTOPRAZOLE SODIUM 40 MG/VIAL IVP SCH (09:00)
[2022-08-13] MEDS: MULTIVITAMINS WITH IRON TABLET PO SCH (10:37)
[2022-08-13] MEDS ORDERED: CARV6 PO (11:18)
[2022-08-13] MEDS ORDERED: CARVEDILOL 6.25 MG TABLET PO SCH (11:30)
[2022-08-13 11:44] VITALS: BP 135/63
[2022-08-13 14:09] LABS: APPEARANCE,URINE CLEAR (CLEAR); BILIRUBIN,URINE NEGATIVE (NEGATIVE); GLUCOSE, URINE (UA) NEGATIVE (NEGATIVE); KETONES,URINE NEGATIVE (NEGATIVE); LEUKOCYTE ESTERASE ,URINE NEGATIVE (NEGATIVE); NITRATE,URINE NEGATIVE (NEGATIVE); OCCULT BLOOD,URINE NEGATIVE (NEGATIVE); PH,URINE 6.5 (5.0-8.0); PROTEIN,URINE NEGATIVE (NEGATIVE); UROBILINOGEN,URINE <=1.0 mg/dL (<=1.0)
[2022-08-13 14:21] LABS: AMPHET/METH SCREEN,URINE NEGATIVE (NEGATIVE); BARBITURATE SCREEN, URINE NEGATIVE (NEGATIVE); BENZODIAZEPINES SCREEN,URINE NEGATIVE (NEGATIVE); CANNABINOID SCREEN,URINE NEGATIVE (NEGATIVE); COCAINE SCREEN,URINE NEGATIVE (NEGATIVE); METHADONE SCREEN, URINE NEGATIVE (NEGATIVE); OPIATE SCREEN,URINE NEGATIVE (NEGATIVE); PHENCYCLIDINE SCREEN,URINE NEGATIVE (NEGATIVE)
[2022-08-13 14:28] LABS: BACTERIA,URINE None Seen /HPF (None Seen); RBC,URINE None Seen /HPF (0-2); SQUAMOUS EPITHELIAL CELL,UR Few /LPF (None Seen); WBC,URINE None Seen /HPF (0-5)
[2022-08-15] MEDS ORDERED: LORazepam 1 MG TABLET PO PRN (07:00)
[2022-08-15] MEDS ORDERED: LORazepam 1 MG TABLET PO SCH (09:00)
[2022-08-16] MEDS ORDERED: LORazepam 1 MG TABLET PO PRN (07:00)
[2022-08-16] MEDS ORDERED: FAMO20 PO (16:23)
== END 2022-08-13 15:30 | disposition home or self-care (01) | DRG 70 ==
LOC: EMS 17:49 → 5S 08-12 04:00
PROVIDERS: ADMIT Internal Medicine; ATTEND Internal Medicine
DX: G93.40 Encephalopathy, unspecified (principal); J69.0 Pneumonitis due to inhalation of food and vomit; J96.01 Acute respiratory failure with hypoxia; F10.131 Alcohol abuse with withdrawal delirium; D50.9 Iron deficiency anemia, unspecified; N18.9 Chronic kidney disease, unspecified; Z20.822 Contact with and (suspected) exposure to COVID-19; F10.129 Alcohol abuse with intoxication, unspecified; Y90.9 Presence of alcohol in blood, level not specified; D63.8 Anemia in other chronic diseases classified elsewhere; F32.9 Major depressive disorder, single episode, unspecified; G20 Parkinson's disease; G89.4 Chronic pain syndrome; I12.9 Hypertensive chronic kidney disease with stage 1 through stage 4 chronic kidney disease, or unspecified chronic kidney disease; J44.9 Chronic obstructive pulmonary disease, unspecified; K70.30 Alcoholic cirrhosis of liver without ascites; Z87.891 Personal history of nicotine dependence; Z91.199 Patient's noncompliance with other medical treatment and regimen due to unspecified reason; Z95.1 Presence of aortocoronary bypass graft; Z95.5 Presence of coronary angioplasty implant and graft
CPT/HCPCS: 71045; 80053; 80307; 81001; 82140; 83690; 83735; 84484; 85025; 92610; 93005; 97162; 99291; C9113; G0378; G0480; J2060; J2405; J3411; J3475; J3490; J7030; J7050; 36415-L1; 36415-TC

== ENCOUNTER → 2022-08-15 | Emergency (ER) | payer MEDICARE, OTHER ==
[~2022-08-15] VITALS: Ht 170.2 cm; Wt 120.0 kg
[~2022-08-15] MED LIST changes: -ACET-784 PO; -ASPI-1450 PO; -CARB-49 PO; +CARV6 PO; -CHOL25TA4 PO; +FAMO20 PO; -MULT-1366 PO; -OXYC-38 PO; -PANT-31 PO; -THIA100T80 PO
[2022-08-15 15:26] LABS: BASOPHILS % (AUTO) 1.2 % (0.0-2.0); EOSINOPHILS % (AUTO) 1.4 % (1.0-6.0); HEMATOCRIT 28.1 % (41-53); HEMOGLOBIN 8.1 g/dL (13.5-17.5); LYMPHOCYTES # (AUTO) 1.2 K/uL (1.0-4.8); LYMPHOCYTES % (AUTO) 16.8 % (22.0-44.0); MEAN CORPUSCULAR HEMOGLOBIN 20.6 pg (26.0-34.0); MEAN CORPUSCULAR HGB CONC 28.7 G/dL (31.0-37.0); MEAN CORPUSCULAR VOLUME 72 fL (80-100); MONOCYTES # (AUTO) 0.6 K/uL (0.1-1.0); MONOCYTES % (AUTO) 8.1 % (2.0-9.0); NEUTROPHILS # (AUTO) 5.2 K/uL (1.8-7.7); NEUTROPHILS % (AUTO) 72.5 % (40.0-70.0); PLATELET COUNT (AUTO) 255 K/uL (150-450); RED BLOOD CELL COUNT(AUTO) 3.93 MIL/uL (4.50-5.90); RED CELL DISTRIBUTION WIDTH 26.7 % (11.5-14.5)
[2022-08-15 15:41] LABS: ANION GAP 8 mmol/L (8-16); CALCIUM, TOTAL 8.5 mg/dL (8.8-10.5); CARBON DIOXIDE 30 mmol/L (22-29); CHLORIDE 102 mmol/L (98-107); GLOMERULAR FILTR. RATE CALC > 60 mL/min (>60); GLUCOSE,RANDOM 115 mg/dL (70-110); POTASSIUM 4.8 mmol/L (3.5-5.1); SODIUM SERUM 140 mmol/L (136-145); UREA NITROGEN, BLOOD 10 mg/dL (7-18)
[2022-08-15 15:49] LABS: ALANINE AMINOTRANSFERASE 6 U/L (12-78); ALBUMIN 3.6 g/dL (3.4-5.0); ALKALINE PHOSPHATASE 78 U/L (46-116); ASPARTATE AMINOTRANSFERASE 19 U/L (15-37); BILIRUBIN,TOTAL 0.9 mg/dL (0.1-1.0); TOTAL PROTEIN, SERUM 7.9 g/dL (6.4-8.2)
[2022-08-15 16:27] VITALS: BP 138/69
== END | disposition still patient (30) ==
LOC: EMS 13:18
DX: S76.111A Strain of right quadriceps muscle, fascia and tendon, initial encounter (principal); M25.461 Effusion, right knee; F10.20 Alcohol dependence, uncomplicated; J44.9 Chronic obstructive pulmonary disease, unspecified; F32.A Depression, unspecified; I10 Essential (primary) hypertension; G62.9 Polyneuropathy, unspecified; F17.210 Nicotine dependence, cigarettes, uncomplicated; F12.90 Cannabis use, unspecified, uncomplicated; Z98.890 Other specified postprocedural states; Z98.62 Peripheral vascular angioplasty status; X58.XXXA Exposure to other specified factors, initial encounter; Y93.89 Activity, other specified; Y92.89 Other specified places as the place of occurrence of the external cause; Y99.8 Other external cause status
CPT/HCPCS: 99284; 71045; 80053; 85025; 36415; 73562; G0480